=== PATIENT | female | born 1960 | race Caucasian/White ===

== ENCOUNTER 2024-07-10 05:46 | Observation (INO) ==
[2024-07-10] MEDS: KETOROLAC 30 MG/ML VIAL IVP STA (06:00)
[2024-07-10] MEDS: SODIUM CHLORIDE 0.9% 1,000 ML IV STA (06:00)
--- NOTE | 2024-07-10 06:07 | ED Physician Documentation ---
History of Present Illness Stated complaint Stated Complaint: AMS History obtained from History obtained from: Patient and EMS Additonal information Additional information: Patient comes to the emergency department via EMS for chief complaint of hypoxia, fever, and altered mental status that started apparently overnight. The patient was found outside her room at [facility] and only her underwear, laying on the floor. It was assumed she had fallen though nobody witnessed the fall. She is on Plavix. The staff checked her oxygen and found her to be 77%. The patient has end-stage COPD and is supposed to be on supplemental oxygen, but was not hooked up to it at the time she was found. Patient initially refuses to answer any questions though she eventually notes that she has had a cough but not worse than usual, and that she has some pain on the right side of her abdomen. No nausea or vomiting. No dysuria. She has some mild CVA tenderness bilaterally. The patient according to records has a longstanding history of smoking cigarettes and also has a history of methamphetamine use. Not clear when the last time was that she used that. She has a history of CHF in addition to her COPD, as well as chronic pain. She also has coronary artery disease and GERD. Medics state that they gave the patient Solu-Medrol as well as 2 DuoNebs after the patient had refused albuterol at [facility]. They also gave her magnesium. Meds/Allgy Home Medications Ambulatory Orders Medication Instructions Recorded Confirmed buspirone 15 mg tablet 15 mg PO TID 06/03/24 albuterol sulfate 90 mcg/actuation 2 puff inhalation Q ID PRN 06/21/24 07/08/24 aerosol inhaler shortness of breath or wheez ing #8.5 grams alprazolam 0.5 mg tablet 0.5 mg PO QDAY PRN anxiety # 30 tabs 06/21/24 07/08/24 cholecalciferol (vitamin D3) 50 50 mcg PO QDAY #90 cap s 06/21/24 07/08/24 mcg (2,000 unit) capsule clopidogrel 75 mg tablet 75 mg PO QDAY #90 tabs 06/2107/08/24 furosemide 20 mg tablet 20 mg PO QDAY #90 tabs 06/2107/08/24 gabapentin 300 mg capsule 300 mg PO TID #90 caps 06/2107/08/24 omeprazole 20 mg capsule,delayed 20 mg PO QDAY #90 cap s 06/21/24 07/08/24 release polyethylene glycol 3350 17 17 g PO QDAY PRN constipat ion 06/21/24 07/08/24 gram/dose oral powder quetiapine 200 mg tablet 200 mg PO QDAY PRN agitation , 06/21/24 07/08/24 paranoia, hallucinations #90 tabs quetiapine 400 mg tablet 400 mg PO QPM #90 tabs 06/2107/08/24 sennosides 8.6 mg capsule (senna) 8.6 mg PO BID 07/08/24 thiamine HCl (vitamin B1) 100 mg 100 mg PO QDAY #90 ca ps 06/21/24 07/08/24 capsule aspirin 81 mg tablet,delayed 81 mg PO QDAY #30 tabs 07/08/24 release (Brenda Low Dose Aspirin) mirtazapine 15 mg tablet 15 mg PO QDAY #30 tabs 06/2407/08/24 morphine 15 mg immediate release 7.5 mg (1/2 x 15 mg) PO TID #60 06/24/24 07/08/24 tablet tabs morphine 15 mg tablet,extended 15 mg PO TID 06/24/24 0 07/08/24 release (MS Contin) dextromethorphan-guaifenesin 5 10 ml PO TID #500 mL 07/08/24 mg-100 mg/5 mL oral liquid (Robitussin Cough-Chest Congestion DM) ipratropium 0.5 mg-albuterol 3 mg 3 ml inhalation TID #180 mL 07/08/24 07/08/24 (2.5 mg base)/3 mL nebulization soln Allergies Allergies Allergy/AdvReac Type Severity Reaction Status Date / Time No Known Drug Allergies Allergy Verified 07/10/24 06:45 [facility] Active Problems All Active Problems (Updated 07/10/24 @ 07:14 by Prema Epstein MD) Acute exacerbation of chronic obstructive pulmonary disease (Acute) Pneumonia (Acute) Hypoxia (Acute) Smokers' cough (Acute) Pulmonary embolism (Acute) Oxygen dependent (Chronic) Chronic respiratory failure with hypoxia (Chronic) Stented coronary artery (Chronic) GERD (gastroesophageal reflux disease) (Chronic) Vitamin D deficiency (Acute) Chronic dyspnea (Chronic) Generalized anxiety disorder (Chronic) Peripheral neuropathy (Chronic) Chronic pain syndrome (Chronic) Adjustment disorder with depressed mood (Acute) Heart failure with reduced ejection fraction (Chronic) Continuous opioid dependence (Chronic) Presence of IVC filter (Chronic) Left leg DVT (Chronic) COPD (chronic obstructive pulmonary disease) (Chronic) Leukocytosis (Acute) Anemia (Chronic) CAD (coronary artery disease) (Chronic) Bipolar 1 disorder (Chronic) Medical History Medical History (Updated 07/10/24 @ 07:14 by Prema Epstein MD) Methamphetamine abuse Constipation Coronary stent restenosis History of hyperkalemia History of hypoglycemia History of ETOH abuse CHF (congestive heart failure) DVT (deep venous thrombosis) Elevated liver enzymes Retroperitoneal bleed History of acute renal failure History of methicillin resistant Staphylococcus aureus infection History of pneumonia History of methamphetamine abuse History of bipolar disorder History of coronary artery disease History of DIC syndrome Surgical History Surgical History (Updated 07/08/24 @ 05:53 by MARITZA Ariza) History of heart artery stent History of thoracentesis Social History Social History (Updated 07/08/24 @ 05:55 by MARITZA Ariza) Smoking Status: Current every day smoker Number of Years Smoked: 45 How many cigarettes a day do you smoke? (20 cigarettes=1 Pk): 8 Second hand tobacco smoke exposure: Yes Do you dip or chew tobacco?: No Do you vape?: No Patient requests smoking cessation consult: No Initiate information on smoking cessation: No Living arrangement: Assisted living Living Condition: Other Support Person: Yes Relationship: Child Living Situation Details: [facility] April 2024 Physical Activity: None Level: Independent Do you feel safe in your home environment?: Yes Suffered physical, verbal, emotional, or financial abuse?: No Frequency: Occasional Number of Amount/day: 1 Substance Use: former substance user and opiods/painkillers Substance Use Details: Morphine and past meth/cannabis Are you following a diet prescribed by a doctor: No Are you following a special diet: No POLST Patient has POLST: Yes POLST Status: DNR Exam Constitutional normal general appearance and no apparent distress HENMT normocephalic, head/scalp atraumatic, external nose normal and oral mucous membranes normal Eyes EOMs intact bilaterally Neck/C-Spine visual inspection normal and supple Respiratory breath sounds equal bilaterally Moderate tachypnea, moderate rhonchi throughout bilateral lung yang. Good air movement to bases. No rales. Cardiovascular normal heart rate noted, regular rhythm noted and no edema Gastrointestinal abdomen soft to palpation and nondistended Mild tenderness to palpation right upper and lower quadrants, no rebound or guarding. Genitourinary no CVA tenderness Extremities normal to inspection Neurology Alert, grossly intact Psychiatry mental status grossly normal Skin skin color normal Results Vitals Vitals: Oxygen O2 Source Nasal cannula Labs Labs: Laboratory Tests 07/10/24 06:04 WBC 15.2 H RBC 4.31 Hgb 12.5 Hct 40.2 MCV 93.3 MCH 29.0 MCHC 31.1 L RDW 14.8 Plt Count 213 MPV 9.3 Neut # (Auto) 14.1 H Lymph # (Auto) 0.4 L [place] # (Auto) 0.5 Eos # (Auto) 0.0 Baso # (Auto) 0.0 Absolute Nucleated RBC 0.00 Nucleated RBC % 0.0 PD Medical Decision Making ED course Complexity details: reviewed old records, reviewed results, re-evaluated patient, considered differential, d/w patient and d/w family ED course: The patient had oxygen saturation on arrival of 95% on 5 L of oxygen per nasal cannula. Looking through her records, it was found that she has end-stage COPD and does require home O2 [id number], though she does take this off to go smoke outside. The patient was worked up with labs, chest x-ray, EKG, urinalysis, and respiratory PCR panel. Labs included blood cultures and lactic acid level. She was given a liter of normal saline and treated with Tylenol and Toradol. She was also sent for CTs of the head and neck with regard to her possible fall. White blood cell count was found to be around 15,000. BNP was 222. Chest x-ray showed a small infiltrate in the right lower lobe and patient was started on Rocephin and Zithromax for this. Urinalysis is pending at the time this dictation., As well as respiratory PCR panel. Lactic acid levels normal. Blood cultures pending. The patient CTs were done and Nonacute. I did attempt to get a hold of the hospitalist prior to the end of my shift at 7:00 this morning but was unable to reach them. I have signed the patient out to my oncoming colleague pending admission to the hospital for hypoxia, pneumonia, and COPD exacerbation. Discharge Plan Discharge Patient Disposition: 66 [facility] DC/Xfer Condition: Serious Clinical Impression: Hypoxia, Acute exacerbation of chronic obstructive pulmonary disease Pneumonia Qualifiers: Pneumonia type: due to unspecified organism Laterality: right Lung location: lower lobe of lung Qualified Code(s): J18.9 - Pneumonia, unspecified organism Prescriptions: No Action quetiapine 200 mg tablet 200 mg PO QDAY PRN (Reason: agitation, paranoia, hallucinations) Qty: 90 2RF quetiapine 400 mg tablet 400 mg PO QPM Qty: 90 0RF gabapentin 300 mg capsule 300 mg PO TID Qty: 90 5RF furosemide 20 mg tablet 20 mg PO QDAY Qty: 90 3RF clopidogrel 75 mg tablet 75 mg PO QDAY Qty: 90 3RF albuterol sulfate 90 mcg/actuation HFA aerosol inhaler 2 puff inhalation QID PRN (Reason: shortness of breath or wheezing) Qty: 8.5 5RF Rx Instructions: Resident may keep and self-administer alprazolam 0.5 mg tablet 0.5 mg PO QDAY PRN (Reason: anxiety) Qty: 30 5RF cholecalciferol (vitamin D3) 50 mcg (2,000 unit) capsule 50 mcg PO QDAY Qty: 90 3RF thiamine HCl (vitamin B1) 100 mg capsule 100 mg PO QDAY Qty: 90 3RF omeprazole 20 mg capsule,delayed release(DR/EC) 20 mg PO QDAY Qty: 90 3RF senna 8.6 mg capsule 8.6 mg PO BID Rx Instructions: Hold for loose stool polyethylene glycol 3350 17 gram/dose powder 17 g PO QDAY PRN (Reason: constipation) morphine 15 mg tablet 7.5 mg PO TID Qty: 60 0RF Rx Instructions: Give at 8AM, 2PM, 8 PM. May have during night if skips during day. Max 4 tabs daily morphine [MS Contin] 15 mg tablet extended release 15 mg PO TID Rx Instructions: Give at 6AM, 12PM, 6PM mirtazapine 15 mg tablet 15 mg PO QDAY Qty: 30 11RF aspirin [Brenda Low Dose Aspirin] 81 mg tablet,delayed release (DR/EC) 81 mg PO QDAY Qty: 30 11RF buspirone 15 mg tablet 15 mg PO TID dextromethorphan-guaifenesin [Robitussin Cough-Chest Librado DM] 5-100 mg/5 mL liquid 10 ml PO TID Qty: 500 5RF Rx Instructions: Use for a week TID routinely, take a week off, then restart cycle ipratropium-albuterol 0.5 mg-3 mg(2.5 mg base)/3 mL solution for nebulization 3 ml inhalation TID Qty: 180 12RF Print Language: Georgian
[2024-07-10 06:12] LABS: BASOPHILS % (AUTO) 0.2 %; EOSINOPHILS % (AUTO) 0.1 %; HCT - HEMATOCRIT 40.2 % (37.0-47.0); HGB - HEMOGLOBIN 12.5 g/dL (12.0-16.0); LYMPHOCYTES # (AUTO) 0.4 10^3/uL (1.5-3.5); LYMPHOCYTES % (AUTO) 2.8 %; MEAN CORPUSCULAR HGB CONC 31.1 g/dL (32.0-36.0); MEAN CORPUSCULAR VOLUME 93.3 fL (81.0-99.0); MEAN PLATELET VOLUME 9.3 fL (7.9-10.8); MONOCYTES # (AUTO) 0.5 10^3/uL (0.0-1.0); MONOCYTES % (AUTO) 3.5 %; NEUTROPHILS # (AUTO) 14.1 10^3/uL (1.5-6.6); NEUTROPHILS % (AUTO) 93.1 %; PLT - PLATELET COUNT 213 10^3/uL (130-450); RED BLOOD COUNT 4.31 10^6/uL (4.20-5.40); RED CELL DISTRIBUTION WIDTH 14.8 % (12.0-15.0); WHITE BLOOD COUNT 15.2 x10^3/uL (4.8-10.8)
[2024-07-10 06:28] LABS: ALBUMIN/GLOBULIN RATIO 1.3 (1.0-2.2); BILIRUBIN,TOTAL 0.4 mg/dL (0.2-1.0); CALCIUM 9.5 mg/dL (8.5-10.3); CREATININE 0.8 mg/dL (0.6-1.3); TOTAL PROTEIN 7.1 g/dL (6.4-8.9)
[2024-07-10] MEDS: ACETAMINOPHEN 650 MG SUPP PR STA (06:30)
[2024-07-10 06:44] LABS: BILIRUBIN,URINE NEGATIVE (NEGATIVE); GLUCOSE, URINE (UA) NEGATIVE (NEGATIVE); KETONES,URINE (UA) NEGATIVE (NEGATIVE); LEUKOCYTE ESTERASE, URINE NEGATIVE (NEGATIVE); NITRITE,URINE NEGATIVE (NEGATIVE); OCCULT BLOOD,URINE NEGATIVE (NEGATIVE); PH,URINE 7.5 PH (5.0-7.5); PROTEIN,URINE NEGATIVE (NEGATIVE); UROBILINOGEN,URINE 0.2 (NORMAL) E.U./dL (NORMAL)
[2024-07-10 06:48] LABS: CLARITY,URINE CLEAR (CLEAR)
[2024-07-10] MEDS ORDERED: cefTRIAXone 2 GM VIAL ONE (06:54)
--- NOTE | 2024-07-10 07:00 | CT Report ---
PROCEDURE: CT Head WO INDICATIONS: fall head inj anticoag TECHNIQUE: CT of the head was performed, without intravenous contrast. Reformats: Coronal and sagittal. For radiation dose reduction, the following was used: automated exposure control, adjustment of mA and/or kV according to patient size. COMPARISON: None. FINDINGS: Image quality: Motion degraded CSF spaces: Basal cisterns are patent. Lateral ventricles are symmetric. Volume: Vascular calcifications. Periventricular white matter disease is commonly seen with chronic microangiopathy. Volume loss is present. These findings are mild to moderate . Brain: No intracranial hemorrhage. Rivera-white differentiation is grossly maintained. Craniofacial structures: Mild paranasal sinus mucosal thickening. IMPRESSION: No acute intracranial abnormality. Motion degraded CT. Reviewed by: Da Hughes MD on 07/10/2024 6:59 AM PDT Approved by: Da Hughes MD on 07/10/2024 6:59 AM PDT Station ID: [id number]
[2024-07-10] MEDS: cefTRIAXone 2 GM in SODIUM CHLORIDE 0.9% MINIBAG 100 ML IV STA (07:01)
--- NOTE | 2024-07-10 07:02 | CT Report ---
PROCEDURE: CT Cervical Spine WO INDICATIONS: fall/ head inj TECHNIQUE: Noncontrast 3 mm thick sections acquired from the skull base to the T4 level. Sagittal and coronal reformats were then constructed. For radiation dose reduction, the following was used: automated exposure control, adjustment of mA and/or kV according to patient size. COMPARISON: None. FINDINGS: Image quality: Motion degraded CT Bones: Mild to moderate spondylotic changes. There is gas, likely degenerative at the inferior endplate of C5. No acute vertebral body height loss or traumatic subluxation is seen. Soft tissues: Prevertebral soft tissues within normal limits. Emphysema seen in the lung apices. IMPRESSION: Mild to moderate spondylosis of the cervical spine. No acute fracture or traumatic subluxation. If there is high concern for further derangement, consider MRI evaluation. Partially seen emphysema at the lung apices. Reviewed by: Da Hughes MD on 07/10/2024 7:01 AM PDT Approved by: Da Hughes MD on 07/10/2024 7:01 AM PDT Station ID: [id number]
--- NOTE | 2024-07-10 07:18 | XRAY Report ---
PROCEDURE: XR Chest 1V INDICATIONS: fever, hypoxia TECHNIQUE: One view of the chest was acquired. COMPARISON: 03/08/2024 FINDINGS AND IMPRESSION: Small right pleural effusion and subjacent opacity. Diffuse mild to moderate interstitial prominence. Findings likely represent edema versus infection. Consider future imaging surveillance to assess for resolution. Heart size is at the upper limit of normal. Degenerative osseous changes. Reviewed by: Da Hughes MD on 07/10/2024 7:17 AM PDT Approved by: Da Hughes MD on 07/10/2024 7:17 AM PDT Station ID: [id number]
[2024-07-10] MEDS: AZITHROMYCIN INJ 500 MG in SODIUM CHLORIDE 0.9% 250 ML IV STA (07:51)
[2024-07-10 07:52] LABS: B. PARAPERTUSSIS- RESP PCR PAN NOT DETECTED; B. PERTUSSIS- RESP PCR PANEL NOT DETECTED; C. PNEUMONIAE- RESP PCR PANEL NOT DETECTED; CORONAVIRUS 229E-RESP PCR NOT DETECTED; CORONAVIRUS HKU1-RESP PCR NOT DETECTED; CORONAVIRUS NL63-RESP PCR NOT DETECTED; CORONAVIRUS OC43-RESP PCR NOT DETECTED; HUMAN METAPNEUMOVIRUS NOT DETECTED; INFLUENZA A- RESP PCR PANEL NOT DETECTED; INFLUENZA B - RESP PCR PANEL NOT DETECTED; M. PNEUMONIAE- RESP PCR PANEL NOT DETECTED; PARAINFLUENZA VIRUS 1 NOT DETECTED; PARAINFLUENZA VIRUS 2 NOT DETECTED; PARAINFLUENZA VIRUS 4 NOT DETECTED; RHINOVIRUS/ENTEROVIRUS NOT DETECTED; RSV- RESP PCR PANEL NOT DETECTED; SARS-CoV-2 -RESP PCR PANEL NOT DETECTED
[2024-07-10] MEDS: IPRATROPIUM/ALBUTEROL 3 ML NEB INH STA (08:21)
[2024-07-10] MEDS: HYDROmorphone 1 MG/ML CARPUJECT IVP STA (08:31)
[2024-07-10] MEDS: LORazepam 2 MG/ML VIAL IVP STA (08:32)
[2024-07-10] MEDS: DEXAMETHASONE 10 MG/ML VIAL IVP STA (08:32)
[2024-07-10] MEDS ORDERED: SODIUM CHLORIDE FLUSH 0.9% 10 ML SYRINGE IVP PRN (09:23)
[2024-07-10] MEDS ORDERED: ONDANSETRON ODT 4 MG TABLET TL PRN (09:23)
[2024-07-10] MEDS ORDERED: ACETAMINOPHEN 325 MG TABLET PO PRN (09:23)
[2024-07-10] MEDS ORDERED: CHOLECALCIFEROL PO SCH (09:57)
--- NOTE | 2024-07-10 12:23 | PHARMACY PROGRESS NOTE ---
Best Possible Medication History Admit Date and Time: 07/10/24 [id number] Home Medications Medication Instructions Recorded Confirmed Type buspirone 15 mg tablet 15 mg PO TID 06/03/24 History gabapentin 300 mg capsule 300 mg PO TID #90 caps 06/2107/10/24 Rx polyethylene glycol 3350 17 17 g PO DAILY PRN constipa tion 06/21/24 07/10/24 History gram/dose oral powder quetiapine 400 mg tablet 400 mg PO QPM #90 tabs 06/2107/10/24 Rx sennosides 8.6 mg capsule (senna) 8.6 mg PO BID PRN co nstipation 06/21/24 07/10/24 History morphine 15 mg tablet,extended 15 mg PO TID 06/24/24 0 07/10/24 History release (MS Contin) ipratropium 0.5 mg-albuterol 3 mg 3 ml inhalation TID #180 mL 07/08/24 07/10/24 Rx (2.5 mg base)/3 mL nebulization soln albuterol sulfate 2.5 mg/3 mL 2.[address] N 07/10/24 07/10/24 History (0.083 %) solution for nebulization shortness of breat h or wheezing albuterol sulfate 90 mcg/actuation 2 puff inhalation T ID PRN 07/10/24 07/10/24 History aerosol inhaler shortness of breath or wheez ing alprazolam 0.5 mg tablet 0.5 mg PO DAILY PRN anxiety 07/10/24 07/10/24 History aspirin 81 mg tablet,delayed 81 mg PO DAILY 07/10/24 0 07/10/24 History release (Brenda Low Dose Aspirin) cholecalciferol (vitamin D3) 50 50 mcg PO DAILY History mcg (2,000 unit) capsule clopidogrel 75 mg tablet 75 mg PO DAILY 07/10/2406/26 History cyanocobalamin (vitamin B-12) 1,000 mcg PO DAILY 07/1007/10/24 History 1,000 mcg tablet furosemide 20 mg tablet 20 mg PO DAILY 07/10/2406/26 History guaifenesin 1,200 mg tablet, 1,200 mg PO BID PRN conge stion 07/10/24 07/10/24 History extended release 12 hr (Mucinex) mirtazapine 15 mg tablet 15 mg PO HS 07/10/24 5 History morphine 15 mg immediate release 7.5 mg PO TID PRN brandon akthrough pain 07/10/24 07/10/24 History tablet omeprazole 20 mg capsule,delayed 20 mg PO DAILY 07/10/24 History release quetiapine 200 mg tablet 200 mg PO BID PRN agitation, 07/10/24 07/10/24 History paranoia, hallucinations thiamine HCl (vitamin B1) 100 mg 100 mg PO DAILY 07/1007/10/24 History capsule tizanidine 4 mg tablet 4 mg PO TID PRN muscle spast icity 07/10/24 07/10/24 History Processed by: Pharmacy Medications reviewed in ED?: No Medication History completed: Yes Patient Interview: Pt unable to participate Secondary Source(s): Insurance records and Facility MAR as ONLY source (Medication list from [facility]) [facility] Statement: As the person ultimately responsible for medication therapy, providers are able to order a medication from an existing home medication list in [facility] via the "Reconcile Routine" prior to Confirmation of that medication by account support specialist. Such practice is discouraged except when the physician, in their clinical judgment, deems that a medical need exists for a medication without regard to previous use.
[2024-07-10] MEDS ORDERED: polyethylene glycoL 3350 17 GM PACKET PO PRN (12:32)
[2024-07-10] MEDS: THIAMINE 100 MG TABLET PO SCH (13:39)
[2024-07-10] MEDS: ASPIRIN EC 81 MG TABLET PO SCH (13:39)
[2024-07-10] MEDS: busPIRone 5 MG TABLET PO SCH (13:39)
[2024-07-10] MEDS: GABAPENTIN 300 MG CAPSULE PO SCH (13:39)
[2024-07-10] MEDS: FUROSEMIDE 20 MG TABLET PO SCH (13:40)
[2024-07-10] MEDS: CLOPIDOGREL 75 MG TABLET PO SCH (13:40)
[2024-07-10] MEDS ORDERED: tiZANidine 4 MG TABLET PO PRN (14:13)
[2024-07-10] MEDS ORDERED: guaiFENesin 600 MG TABLET PO PRN (14:13)
[2024-07-10] MEDS: MORPHINE IR 15 MG TABLET PO PRN (14:27)
[2024-07-10] MEDS: ALPRAZolam 0.25 MG TABLET PO PRN (15:59)
[2024-07-10] MEDS: GUAIFENESIN PO SCH (16:16)
[2024-07-10] MEDS: DEXTROMETHORPHAN PO SCH (16:16)
[2024-07-10] MEDS: [UNRECOGNIZED DRUG - OTHER] PO SCH (16:16)
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
[2024-07-10] MEDS: SODIUM CHLORIDE FLUSH 0.9% 10 ML SYRINGE IVP SCH (20:20)
[2024-07-10] MEDS: QUEtiapine 100 MG TABLET PO SCH (20:21)
[2024-07-10] MEDS: MIRTAZAPINE 15 MG TABLET PO SCH (20:21)
[2024-07-10] MEDS ORDERED: SENNA 8.6 MG TABLET PO PRN (21:00)
[2024-07-11] MEDS: ethyl alcohoL 62% SWAB AMPULE NAS SCH (00:52)
[2024-07-11] MEDS: KETOROLAC 15 MG/ML VIAL IVP PRN (00:58)
[2024-07-11] MEDS: ALPRAZolam 0.25 MG TABLET PO PRN (00:58)
[2024-07-11 05:48] LABS: BASOPHILS % (AUTO) 0.2 %; HCT - HEMATOCRIT 40.1 % (37.0-47.0); HGB - HEMOGLOBIN 12.3 g/dL (12.0-16.0); LYMPHOCYTES # (AUTO) 0.7 10^3/uL (1.5-3.5); MEAN CORPUSCULAR HGB CONC 30.7 g/dL (32.0-36.0); MEAN CORPUSCULAR VOLUME 94.6 fL (81.0-99.0); MEAN PLATELET VOLUME 10.2 fL (7.9-10.8); MONOCYTES # (AUTO) 0.8 10^3/uL (0.0-1.0); MONOCYTES % (AUTO) 4.2 %; NEUTROPHILS # (AUTO) 16.7 10^3/uL (1.5-6.6); NEUTROPHILS % (AUTO) 91.1 %; PLT - PLATELET COUNT 202 10^3/uL (130-450); RED BLOOD COUNT 4.24 10^6/uL (4.20-5.40); RED CELL DISTRIBUTION WIDTH 14.9 % (12.0-15.0); WHITE BLOOD COUNT 18.3 x10^3/uL (4.8-10.8)
[2024-07-11 06:04] LABS: CALCIUM 9.4 mg/dL (8.5-10.3); CREATININE 0.6 mg/dL (0.6-1.3); POTASSIUM 4.7 mmol/L (3.5-4.5)
[2024-07-11] MEDS: PANTOPRAZOLE 40 MG TABLET PO SCH (06:32)
[2024-07-11] MEDS: QUEtiapine 100 MG TABLET PO PRN (06:43)
[2024-07-11] MEDS ORDERED: ALBUTEROL NEB 2.5 MG/3 ML INH PRN (07:52)
[2024-07-11] MEDS: IPRATROPIUM/ALBUTEROL 3 ML NEB INH SCH (08:00)
[2024-07-11] MEDS: CEFPODOXIME PROXETIL 100 MG TABLET PO SCH (08:33)
[2024-07-11] MEDS: AZITHROMYCIN 250 MG TABLET PO SCH (08:34)
[2024-07-11] MEDS: CYANOCOBALAMIN 500 MCG TABLET PO SCH (08:34)
[2024-07-11 12:13] LABS: ABG PH 7.44 (7.35-7.45)
[2024-07-11 12:14] LABS: ABG BASE EXCESS 14.1 mmol/L (-2.0-3.0); ABG HCO3 38.4 mmol/L (22.0-26.0); ABG OXYGEN SATURATION 99 % (95-98); ABG PCO2 56 mmHg (34-45); ABG PO2 97 mmHg (83-108); ALLEN TEST POSITIVE
[2024-07-11 12:17] LABS: ABG TCO2 40.1 mmol/L (21.0-29.0)
[2024-07-11 13:07] VITALS: BP 101/65; TEMP 98.1; O2SAT 93
--- NOTE | 2024-07-11 13:59 | Discharge Summary ---
Discharge Summary Admit Date: 07/10/24 Discharge Date: 07/11/24 Discharging Provider: Dr Toby Bustos MD DIAGNOSES Admission Diagnoses: CAP COPD Chronic respiratory failure with hypoxia CAD BESSY Chronic pain syndrome Discharge Diagnoses with Status of Each Condition: Community-acquired pneumoniaimproved COPD - Stable Chronic respiratory failure with hypoxia - Stable CAD - Stable BESSY - Stable Chronic pain syndrome - Stable HPI History of Present Illness: Patient is a 63-year-old female with a PMH of CAD, COPD, chronic pain on opiates, generalized anxiety, who resides at an assisted living facility and was brought to the emergency room after she was found to have low oxygen levels. Per reports she was found lying on the floor only in her underwear and when staff checked her oxygen level it was 77% on room air. She is prescribed continuous oxygen supplementation as she has a history of end-stage COPD but per the daughter, she often times does not wear it. She states that when she was sitting on the floor she sat upright and thinking a pillow was behind her head she abruptly extended her back to straighten up and hit her head on the wall as the pillow had fallen. As such she is complaining of headache at the time of admission. In the ED the patient was well stabilized on 2 L nasal cannula and remainder of her vital signs were within normal limits. Head CT, cervical spine CT showed no acute abnormalities. Chest x-ray was equivocal for possible pneumonia.She does have a WBC of 15.2 however she was given Solu-Medrol prior to the ED arrival. Given that she was demonstrating some labored breathing, and mildly hypoxic, observation admission is requested in the ED. HOSPITAL COURSE Hospital Course: Patient was admitted to [facility]. Her oxygen levels returned to her baseline 2 L oxygen requirement shortly after admission. Overall she had an uneventful course during her 1 night stay in the hospital and she did well. She was maintained on p.o. antibiotics and had no fevers or other suggestion of worsening infection. Given that she was at her baseline oxygen requirements, she was deemed to be stable for discharge. ALLERGIES Allergies Allergy/AdvReac Type Severity Reaction Status Date / Time No Known Drug Allergies Allergy Verified 07/10/24 06:45 MEDICATIONS Ambulatory Orders Medication Instructions Recorded Confirmed buspirone 15 mg tablet 15 mg PO TID 06/03/24 gabapentin 300 mg capsule 300 mg PO TID #90 caps 06/2107/10/24 polyethylene glycol 3350 17 17 g PO DAILY PRN constipa tion 06/21/24 07/10/24 gram/dose oral powder quetiapine 400 mg tablet 400 mg PO QPM #90 tabs 06/2107/10/24 sennosides 8.6 mg capsule (senna) 8.6 mg PO BID PRN co nstipation 06/21/24 07/10/24 morphine 15 mg tablet,extended 15 mg PO TID 06/24/24 0 07/10/24 release (MS Contin) ipratropium 0.5 mg-albuterol 3 mg 3 ml inhalation TID #180 mL 07/08/24 07/10/24 (2.5 mg base)/3 mL nebulization soln albuterol sulfate 2.5 mg/3 mL 2.5 mg inhalation Q4H LA N 07/10/24 07/10/24 (0.083 %) solution for nebulization shortness of breat h or wheezing albuterol sulfate 90 mcg/actuation 2 puff inhalation T ID PRN 07/10/24 07/10/24 aerosol inhaler shortness of breath or wheez ing alprazolam 0.5 mg tablet 0.5 mg PO DAILY PRN anxiety 07/10/24 07/10/24 aspirin 81 mg tablet,delayed 81 mg PO DAILY 07/10/24 0 07/10/24 release (Brenda Low Dose Aspirin) clopidogrel 75 mg tablet 75 mg PO DAILY 07/10/2406/26 cyanocobalamin (vitamin B-12) 1,000 mcg PO DAILY 07/1007/10/24 1,000 mcg tablet furosemide 20 mg tablet 20 mg PO DAILY 07/10/2406/26 guaifenesin 1,200 mg tablet, 1,200 mg PO BID PRN conge stion 07/10/24 07/10/24 extended release 12 hr (Mucinex) mirtazapine 15 mg tablet 15 mg PO HS 07/10/24 5 morphine 15 mg immediate release 7.5 mg PO TID PRN brandon akthrough pain 07/10/24 07/10/24 tablet omeprazole 20 mg capsule,delayed 20 mg PO DAILY 07/10/24 release quetiapine 200 mg tablet 200 mg PO BID PRN agitation, 07/10/24 07/10/24 paranoia, hallucinations thiamine HCl (vitamin B1) 100 mg 100 mg PO DAILY 07/1007/10/24 capsule tizanidine 4 mg tablet 4 mg PO TID PRN muscle spast icity 07/10/24 07/10/24 azithromycin 250 mg tablet 500 mg (2 x 250 mg) PO PATRICE Y 3 07/11/24 days #3 tabs cefpodoxime 100 mg tablet 100 mg PO BID 3 days #6 tabs 07/11/24 PHYSICAL EXAM AT DISCHARGE Vital Signs: Vital Signs x48h Temp Pulse Pulse Resp BP Pulse Ox O2 Flow Rate 07/11/24 13:00 36.7 C 88 20 101/65 93 2 07/11/24 11:31 80 16 2 07/11/24 08:05 2 07/11/24 08:01 80 16 2 07/11/24 07:48 80 20 94 2 07/11/24 07:28 36.6 C 79 16 115/68 95 2 General Appearance: positive No acute distress and Alert Respiratory: positive No respiratory distress and Breath sounds nml; negative Wheezes Cardiovascular: positive Regular rate & rhythm, No murmur and No gallop Abdomen: positive Non-tender, No organomegaly, Nml bowel sounds and No distention Skin: positive Color nml Extremities: positive Nml appearance Neurologic/Psychiatric: positive Oriented x3, CN's nml (2-12) and Motor nml LABS 07/11/24 05:32 07/11/24 05:32 DIAGNOSTIC IMAGING Diagnostic Imaging Results: Final report reviewed SEPSIS Current Stage of Sepsis: Ruled out FOLLOW UP Follow Up: Follw up with PCP and palliative care TIME SPENT Time Spent in Discharge (Minutes): 42 Discharge Plan Discharge Patient Disposition: Home, Self Care Condition: Serious Medically Cleared Date:: 07/11/24 Prescriptions: New azithromycin 250 mg Tablet 500 mg PO DAILY 3 Days Qty: 3 0RF cefpodoxime 100 mg Tablet 100 mg PO BID 3 Days Qty: 6 0RF Continued cyanocobalamin (vitamin B-12) 1,000 mcg tablet 1,000 mcg PO DAILY guaifenesin [Mucinex] 1,200 mg tablet extended release 12hr 1,200 mg PO BID PRN (Reason: congestion) albuterol sulfate 2.5 mg /3 mL (0.083 %) solution for nebulization 2.5 mg inhalation Q4H PRN (Reason: shortness of breath or wheezing) tizanidine 4 mg tablet 4 mg PO TID PRN (Reason: muscle spasticity) quetiapine 200 mg tablet 200 mg PO BID PRN (Reason: agitation, paranoia, hallucinations) clopidogrel 75 mg tablet 75 mg PO DAILY aspirin [Brenda Low Dose Aspirin] 81 mg tablet,delayed release (DR/EC) 81 mg PO DAILY alprazolam 0.5 mg tablet 0.5 mg PO DAILY PRN (Reason: anxiety) omeprazole 20 mg capsule,delayed release(DR/EC) 20 mg PO DAILY furosemide 20 mg tablet 20 mg PO DAILY mirtazapine 15 mg tablet 15 mg PO HS albuterol sulfate 90 mcg/actuation HFA aerosol inhaler 2 puff inhalation TID PRN (Reason: shortness of breath or wheezing) Rx Instructions: Resident may keep and self-administer morphine 15 mg tablet 7.5 mg PO TID PRN (Reason: breakthrough pain) Rx Instructions: Give at 8AM, 2PM, 8 PM. May have during night if skips during day. Max 4 tabs daily thiamine HCl (vitamin B1) 100 mg capsule 100 mg PO DAILY quetiapine 400 mg tablet 400 mg PO QPM Qty: 90 0RF gabapentin 300 mg capsule 300 mg PO TID Qty: 90 5RF Patient Comments: 0800, 1400, 2000 senna 8.6 mg capsule 8.6 mg PO BID PRN (Reason: constipation) Rx Instructions: Hold for loose stool polyethylene glycol 3350 17 gram/dose powder 17 g PO DAILY PRN (Reason: constipation) morphine [MS Contin] 15 mg tablet extended release 15 mg PO TID Rx Instructions: Give at 6AM, 1230PM, 6PM buspirone 15 mg tablet 15 mg PO TID ipratropium-albuterol 0.5 mg-3 mg(2.5 mg base)/3 mL solution for nebulization 3 ml inhalation TID Qty: 180 12RF Health Concerns: Prema you were admitted to the hospital because you were brought to the ER and found to have low oxygen saturation levels. It is my understanding that you were not wearing your oxygen when this occurred, and because of the significance of your COPD, unfortunately you will need to wear oxygen continuously at all times because of you do not, your oxygen levels may drop to an unsafe level which can lead to you passing out, or worse. Please continue to wear your oxygen nasal cannula as prescribed. In addition, as we evaluated you in the emergency room a chest x-ray suggested the possibility of pneumonia. To play it safe, I am going to continue the treatments of your antibiotics that we gave you here in the hospital. You will need 3 more days of tablets. You have already had today's dose, so you can start taking the rest of them tomorrow, on Sunday. I will send a prescription to your pharmacy. Also, I know that you have been followed by palliative care. Typically patients on a palliative care plan have a goal of care that focuses primarily on quality of life and tries to minimize hospital visits when possible. With this in mind, I have discussed this with your daughter, to communicate to the facility where you live, that as long as you are not feeling well, and otherwise doing well, moderately low oxygen levels should not necessarily require a visit to the emergency room. Because you have COPD, it would be normal for your oxygen levels to be lower than normal, and occasionally it may even dip into the low 80s. If you are not having fevers, and generally feeling well, you can evaluate whether you would like to go to the emergency room but it may not always be necessary. This should be discussed further with your palliative care caregivers, so that your goals of care are clearly defined so that you can focus on enjoying your quality of life rather than spending more time in hospitals. On the other hand, should your goals of care change, then absolutely changes to your health should be evaluated and when necessary visits to the hospital would be appropriate. Care Plan Goals: Pallaitive Care Plan of Treatment: * Complete antiboitics * Follow up with PCP and Palliative Care * Cont home oxygen Print Language: Lao Patient Instructions: Care Palliative
--- NOTE | 2024-07-23 19:49 | ED Physician Documentation ---
ED Addendum Addendum Addendum: the patient was boarding for admission at time of shift change. Dr. irby attempted contact with hospitalist at shift change and they did call back soon after while she was still here. Planned admission for patient when bed available during the day. Pt in the ED awaiting bed opening and got continued resp care with nebs and fluids. Antibiotics had already been given. No complications and pt to the floor. Discharge Plan Discharge Patient Disposition: ED Place in Observation Condition: Serious Clinical Impression: Hypoxia, Pneumonia, Acute exacerbation of chronic obstructive pulmonary disease, Oxygen dependent Interventions: ED Admission Assessment Last Done: 07/10/24 10:19
== END 2024-07-11 15:03 | disposition home or self-care (01) ==
LOC: MS2 05:46 → ED 05:46 → MS2 10:20
PROVIDERS: ADMIT Family Medicine Sports Medicine; ATTEND Family Medicine Sports Medicine
DX: F17.210 Nicotine dependence, cigarettes, uncomplicated; I50.22 Chronic systolic (congestive) heart failure; J18.9 Pneumonia, unspecified organism; G89.4 Chronic pain syndrome; W19.XXXA Unspecified fall, initial encounter; I25.10 Atherosclerotic heart disease of native coronary artery without angina pectoris; K21.9 Gastro-esophageal reflux disease without esophagitis; Z20.822 Contact with and (suspected) exposure to COVID-19; Z66 Do not resuscitate; J44.1 Chronic obstructive pulmonary disease with (acute) exacerbation; Z95.5 Presence of coronary angioplasty implant and graft; J96.11 Chronic respiratory failure with hypoxia; J44.0 Chronic obstructive pulmonary disease with (acute) lower respiratory infection; F41.1 Generalized anxiety disorder; Z20.818 Contact with and (suspected) exposure to other bacterial communicable diseases; Z79.899 Other long term (current) drug therapy; I49.3 Ventricular premature depolarization; Z79.02 Long term (current) use of antithrombotics/antiplatelets; G62.9 Polyneuropathy, unspecified; Z99.81 Dependence on supplemental oxygen; Z79.891 Long term (current) use of opiate analgesic; S09.90XA Unspecified injury of head, initial encounter; I45.10 Unspecified right bundle-branch block; Z20.828 Contact with and (suspected) exposure to other viral communicable diseases

== ENCOUNTER 2025-02-22 12:54 | Inpatient (IN) ==
--- NOTE | 2025-02-22 13:23 | ED Physician Documentation ---
History of Present Illness Stated complaint Stated Complaint: CONFUSION Chief complaint Chief Complaint: Resp History obtained from History obtained from: Patient History of Present Illness Timing: Prior to arrival Additonal information Additional information: Patient 64-year-old female with past medical history of COPD on 3 L nasal cannula, history of coronary artery disease with history of STEMI history of alcohol use methamphetamine use and history of CHF presents to the emergency department with increased weakness and fatigue. Patient was seen here recently on the at that time was diagnosed with COPD exacerbation and discharged on antibiotics and steroids. Since then patient has been having some diarrhea she has finished steroids and antibiotics. But continues to have diarrhea chills and weakness. Daughter feels she is confused but patient is ANO x 2 here in the ED. She notes she has fallen but no head injury or loss of consciousness. P deacon has been weaker on getting around she currently lives at assisted living facility and was brought in by daughter for increased shortness of breath weakness and diarrhea. Meds/Allgy Home Medications Ambulatory Orders Medication Instructions Recorded Confirmed albuterol sulfate 90 mcg/actuation 2 puff inhalation T ID PRN 07/10/24 02/22/25 aerosol inhaler shortness of breath or wheez ing furosemide 20 mg tablet 20 mg PO DAILY 07/10/2401/27 thiamine HCl (vitamin B1) 100 mg 100 mg PO DAILY 07/1002/22/25 capsule mirtazapine 30 mg tablet 45 mg (1.5 x 30 mg) PO HS #3 0 tabs 08/26/24 02/22/25 quetiapine 200 mg tablet 200 mg PO QDAY #30 tabs 07/0 03/2202/22/25 quetiapine 200 mg tablet 200 mg PO QDAY PRN agitation , 08/26/24 02/22/25 paranoia, hallucinations aspirin 81 mg tablet,delayed 81 mg PO DAILY #30 tabs 0 08/28/24 02/22/25 release (Brenda Low Dose Aspirin) ipratropium 0.5 mg-albuterol 3 mg 3 ml inhalation QID #180 mL 09/30/24 02/22/25 (2.5 mg base)/3 mL nebulization soln pantoprazole 20 mg tablet,delayed See Rx Instructions .Route 10/21/24 02/22/25 release .COMPLEX #30 tabs cholecalciferol (vitamin D3) 50 50 mcg PO QDAY #30 cap s 12/09/24 02/22/25 mcg (2,000 unit) capsule cyanocobalamin (vitamin B-12) 1,000 mcg PO DAILY #30 t abs 12/09/24 02/22/25 1,000 mcg tablet magnesium gluconate 12.5 mg 12.5 mg PO BID #90 tabs 02/22/25 magnesium (250 mg) tablet polyethylene glycol 3350 17 17 g PO QDAY PRN constipat ion 12/09/24 02/22/25 gram/dose oral powder fluticasone fur. 100 mcg-umeclid 1 inh inhalation Q24H #60 ea 12/22/24 02/22/25 62.5 mcg-vilant 25 mcg inhalat.powder (Trelegy Ellipta) morphine concentrate 100 mg/5 mL 15 mg (0.75 mL) PO Q4 H #240 mL 01/06/25 02/22/25 (20 mg/mL) oral solution sennosides 8.6 mg tablet (senna) 8.6 mg PO BID #60 tab s 01/06/25 02/22/25 gabapentin 300 mg capsule See Rx Instructions .Route 1 03/11/24 02/22/25 .COMPLEX #90 caps alprazolam 0.5 mg tablet 0.5 mg PO BID PRN anxiety #6 0 tabs 02/05/25 02/22/25 clopidogrel 75 mg tablet 75 mg PO DAILY #30 tabs 01/2602/22/25 sennosides 8.6 mg capsule (senna) 8.6 mg PO QDAY PRN c onstipation 02/05/25 02/22/25 buspirone 10 mg tablet 10 mg PO BID #90 tabs 02/22/25 guaifenesin 100 mg/5 mL oral liquid 200 mg (10 mL) PO Q4H 7 days #420 02/16/25 02/22/25 mL prednisone 5 mg tablet 10 mg (2 x 5 mg) PO QDAY #30 tabs 02/16/25 02/22/25 quetiapine 400 mg tablet 400 mg PO QPM #90 tabs 02/1702/22/25 Allergies Allergies Allergy/AdvReac Type Severity Reaction Status Date / Time No Known Drug Allergies Allergy Verified 02/22/25:03 [facility] Active Problems All Active Problems (Updated 02/22/25 @ 14:40 by Dinah Perez PA-C) Right lower lobe pneumonia (Acute) Fatigue (Acute) Encephalopathy (Acute) Pneumonia (Acute) Acute exacerbation of chronic obstructive pulmonary disease (Acute) Hypotension (Acute) Carpal tunnel syndrome on both sides (Acute) Drug induced constipation (Acute) Hepatomegaly (Chronic) Amphetamine substance use disorder, moderate, in sustained remission, dependence (Acute) Tobacco use disorder, moderate, dependence (Acute) Localized swelling of both lower legs (Acute) Counseling regarding advanced directives and goals of care (Acute) Chronic respiratory failure with hypoxia, on home oxygen therapy (Acute) Chronic congestion of paranasal sinus (Chronic) Hypoxia (Acute) Smokers' cough (Chronic) Pulmonary embolism (Acute) Stented coronary artery (Chronic) GERD (gastroesophageal reflux disease) (Chronic) Chronic dyspnea (Chronic) Generalized anxiety disorder (Chronic) Peripheral neuropathy (Chronic) Chronic pain syndrome (Chronic) Adjustment disorder with depressed mood (Chronic) Heart failure with reduced ejection fraction (Chronic) Continuous opioid dependence (Chronic) Presence of IVC filter (Chronic) Left leg DVT (Chronic) COPD (chronic obstructive pulmonary disease) (Chronic) Anemia (Chronic) CAD (coronary artery disease) (Chronic) Bipolar 1 disorder (Chronic) Medical History Medical History (Updated 02/22/25 @ 14:40 by Dinah Perez PA-C) History of ST elevation myocardial infarction (STEMI) 08/2023 & 09/2023 History of rhabdomyolysis Acute hyperkalemia Leukocytosis Methamphetamine abuse in remission Vitamin D deficiency History of DVT (deep vein thrombosis) History of CHF (congestive heart failure) History of chronic respiratory failure Oxygen dependent Coronary stent restenosis History of hyperkalemia History of hypoglycemia History of ETOH abuse Retroperitoneal bleed History of acute renal failure History of methicillin resistant Staphylococcus aureus infection History of pneumonia History of methamphetamine abuse History of bipolar disorder History of coronary artery disease History of DIC syndrome Surgical History Surgical History History of heart artery stent History of thoracentesis Social History Social History Smoking Status: Current every day smoker Number of Years Smoked: 43 How many cigarettes a day do you smoke? (20 cigarettes=1 Pk): 8 Second hand tobacco smoke exposure: Yes Do you dip or chew tobacco?: No Do you vape?: Yes Patient requests smoking cessation consult: No Initiate information on smoking cessation: No Living arrangement: Assisted living Marital Status: Living Condition: Other Living Condition Notes: 2 bedroom apartment with another person. 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 Prescribed narcotics Are you following a diet prescribed by a doctor: No Are you following a special diet: No POLST Patient has POLST: Yes POLST on file?: Yes POLST CPR Status: Do Not Attempt Resuscitation (DNAR) / Allow Natural Exam Exam Vital Signs: Vital Signs x48h Temp Pulse Resp BP Pulse Ox O2 Flow Rate 02/22/25 13:41 84 16 2 02/22/25 13:38 2 02/22/25 13:36 84 19 121/82 95 2 02/22/25 12:57 36.4 C L 85 22 110/77 91 L 3 Results Vitals Vitals: Vital Signs - 24 hr 02/22/25 12:57 02/22/25 13:36 02/22/25 13:38 Temperature 36.4 C L Temperature Source Temporal Artery Scan Pulse Rate 85 84 Respiratory Rate 22 19 Blood Pressure 110/77 121/82 O2 Saturation 91 L 95 Oxygen Delivery Method Nasal Cannula O2 Source Nasal cannula Nasal cannula If not protocol: Oxygen Flow, liters/minute 3 2 2 Pain Intensity 0 0 02/22/25 13:41 Temperature Temperature Source Pulse Rate 84 Respiratory Rate 16 Blood Pressure O2 Saturation Oxygen Delivery Method O2 Source Nasal cannula If not protocol: Oxygen Flow, liters/minute 2 Pain Intensity Oxygen O2 Source Nasal cannula Labs Labs: Laboratory Tests 02/22/25 02/22/25 02/22/25 13:25 13:30 13:44 WBC 9.0 RBC 4.37 Hgb 13.7 Hct 44.5 MCV 101.8 H MCH 31.4 H MCHC 30.8 L RDW 13.2 Plt Count 245 MPV 9.5 Neut # (Auto) 7.5 H Lymph # (Auto) 0.9 L Mccone # (Auto) 0.5 Eos # (Auto) 0.0 Baso # (Auto) 0.0 Absolute Nucleated RBC 0.00 Nucleated RBC % 0.0 VBG pH VBG pCO2 VBG pO2 VBG HCO3 VBG Total CO2 VBG O2 Saturation VBG Base Excess Sodium 143 Potassium 4.3 Chloride 96 L Carbon Dioxide 45 H* Anion Gap 2.0 L BUN 14 Creatinine 0.6 Estimated GFR (MDRD) 101 Glucose 134 H Lactic Acid 0.5 Calcium 9.4 Magnesium 1.8 Total Bilirubin 0.5 AST 12 ALT 24 Alkaline Phosphatase 101 B-Natriuretic Peptide 134 H Total Protein 7.1 Albumin 4.0 Globulin 3.1 Albumin/Globulin Ratio 1.3 Procalcitonin Immunoas < 0.05 Nasal Adenovirus (PCR) NOT DETECTED Nasal B. parapertussis DNA (PCR) NOT DETECTED Nasal Coronavir 229E PCR NOT DETECTED Nasal Coronavir HKU1 PCR NOT DETECTED Nasal Coronavir NL63 PCR NOT DETECTED Nasal Coronavir OC43 PCR NOT DETECTED Nasal Enterovir/Rhinovir PCR DETECTED A Nasal Influenza B PCR NOT DETECTED Nasal Influenza A PCR NOT DETECTED Nasal Parainfluen 1 PCR NOT DETECTED Nasal Parainfluen 2 PCR NOT DETECTED Nasal Parainfluen 3 PCR NOT DETECTED Nasal Parainfluen 4 PCR NOT DETECTED Nasal RSV (PCR) NOT DETECTED Nasal B.pertussis DNA PCR NOT DETECTED Nasal C.pneumoniae (PCR) NOT DETECTED Chon Human Metapneumo PCR NOT DETECTED Nasal M.pneumoniae (PCR) NOT DETECTED Nasal SARS-CoV-2 (PCR) NOT DETECTED 02/22/25 14:20 WBC RBC Hgb Hct MCV MCH MCHC RDW Plt Count MPV Neut # (Auto) Lymph # (Auto) Mccone # (Auto) Eos # (Auto) Baso # (Auto) Absolute Nucleated RBC Nucleated RBC % VBG pH 7.367 VBG pCO2 76.6 H VBG pO2 115.6 H VBG HCO3 44.4 H VBG Total CO2 46.7 H VBG O2 Saturation 100.0 H VBG Base Excess 18.8 H Sodium Potassium Chloride Carbon Dioxide Anion Gap BUN Creatinine Estimated GFR (MDRD) Glucose Lactic Acid Calcium Magnesium Total Bilirubin AST ALT Alkaline Phosphatase B-Natriuretic Peptide Total Protein Albumin Globulin Albumin/Globulin Ratio Procalcitonin Immunoas Nasal Adenovirus (PCR) Nasal B. parapertussis DNA (PCR) Nasal Coronavir 229E PCR Nasal Coronavir HKU1 PCR Nasal Coronavir NL63 PCR Nasal Coronavir OC43 PCR Nasal Enterovir/Rhinovir PCR Nasal Influenza B PCR Nasal Influenza A PCR Nasal Parainfluen 1 PCR Nasal Parainfluen 2 PCR Nasal Parainfluen 3 PCR Nasal Parainfluen 4 PCR Nasal RSV (PCR) Nasal B.pertussis DNA PCR Nasal C.pneumoniae (PCR) Chon Human Metapneumo PCR Nasal M.pneumoniae (PCR) Nasal SARS-CoV-2 (PCR) PD Medical Decision Making ED course Complexity details: reviewed old records and reviewed results ED course: Patient is 64-year-old female presenting with increased weakness and fatigue after being seen here on the for COPD exacerbation. She was started on antibiotics and steroids after negative CT abdomen for some right lower quadrant pain and chest x-ray showing pneumonitis. Patient finished a course of azithromycin and steroids with minimal improvement in symptoms continues to have increased shortness of breath but remains on 3 L nasal cannula which is at her baseline. She is ANO x 3 here in the ED but appears fatigued. GCS 13. Vitals stable she saturating at 91% on 3 L nasal cannula she is normotensive nontachycardic normal respiratory rate. Chest x-ray here shows persistent right lower lobe pneumonia seen on imaging on 02/14. Patient was given a DuoNeb treatment here in the ED. No significant improvement in symptoms. CBC shows no significant white count no signs of anemia to explain her shortness of breath she has got blood cultures pending but normal lactic acid at this time. BNP well within normal limits. She has normal magnesium and procalcitonin is negative. VBG obtained as her CMP shows some elevated CO2. Her pH is within normal limits but she has significantly elevated CO2 however this is most likely chronic given she is compensating and has elevated bicarb. I reviewed with Dr. Reece hospitalist for treatment who is agreeable with this plan. Patient started on ceftriaxone and some light fluids here in the ED recommendations from Dr. Salguero will monitor patient closely and will admit patient to the floor for treatment. Discharge Plan Discharge Patient Disposition: 67 [facility] DC/Xfer Condition: Stable Clinical Impression: Encephalopathy, Fatigue, Right lower lobe pneumonia COPD (chronic obstructive pulmonary disease) Qualifiers: COPD type: unspecified COPD Qualified Code(s): J44.9 - Chronic obstructive pulmonary disease, unspecified Prescriptions: No Action pantoprazole 20 mg tablet,delayed release (DR/EC) See Rx Instructions .ROUTE .COMPLEX Qty: 30 11RF Dose Instruction: 1 TAB BY MOUTH EVERY MORNING 30 MINS PRIOR TO FIRST MEAL Rx Instructions: 1 TAB BY MOUTH EVERY MORNING 30 MINS PRIOR TO FIRST MEAL cyanocobalamin (vitamin B-12) 1,000 mcg tablet 1,000 mcg PO DAILY Qty: 30 11RF Trelegy Ellipta 100-62.5-25 mcg blister with device 1 inh inhalation Q24H Qty: 60 3RF gabapentin 300 mg capsule See Rx Instructions .ROUTE .COMPLEX Qty: 90 11RF Dose Instruction: 1 CAP BY MOUTH 3 TIMES DAILY Rx Instructions: 1 CAP BY MOUTH 3 TIMES DAILY quetiapine 400 mg tablet 400 mg PO QPM Qty: 90 0RF furosemide 20 mg tablet 20 mg PO DAILY albuterol sulfate 90 mcg/actuation HFA aerosol inhaler 2 puff inhalation TID PRN (Reason: shortness of breath or wheezing) Rx Instructions: Resident may keep and self-administer thiamine HCl (vitamin B1) 100 mg capsule 100 mg PO DAILY alprazolam 0.5 mg tablet 0.5 mg PO BID PRN (Reason: anxiety) Qty: 60 5RF Rx Instructions: May take in AM and PM; not together. senna 8.6 mg capsule 8.6 mg PO QDAY PRN (Reason: constipation) Rx Instructions: Hold for loose stool clopidogrel 75 mg tablet 75 mg PO DAILY Qty: 30 0RF mirtazapine 30 mg tablet 45 mg PO HS Qty: 30 11RF quetiapine 200 mg tablet 200 mg PO QDAY Qty: 30 11RF Rx Instructions: Give at noon daily quetiapine 200 mg tablet 200 mg PO QDAY PRN (Reason: agitation, paranoia, hallucinations) aspirin [Brenda Low Dose Aspirin] 81 mg tablet,delayed release (DR/EC) 81 mg PO DAILY Qty: 30 11RF ipratropium-albuterol 0.5 mg-3 mg(2.5 mg base)/3 mL solution for nebulization 3 ml inhalation QID Qty: 180 12RF Rx Instructions: Space out evenly q 6 hrs magnesium gluconate 12.5 mg magne- sium (250 mg) tablet 12.5 mg PO BID Qty: 90 3RF cholecalciferol (vitamin D3) 50 mcg (2,000 unit) capsule 50 mcg PO QDAY Qty: 30 0RF polyethylene glycol 3350 17 gram/dose powder 17 g PO QDAY PRN (Reason: constipation) sennosides [senna] 8.6 mg tablet 8.6 mg PO BID Qty: 60 11RF morphine concentrate 100 mg/5 mL (20 mg/mL) solution 15 mg PO Q4H Qty: 240 0RF buspirone 10 mg tablet 10 mg PO BID Qty: 90 3RF prednisone 5 mg tablet 10 mg PO QDAY Qty: 30 10RF guaifenesin 100 mg/5 mL liquid 200 mg PO Q4H 7 Days Qty: 420 4RF Rx Instructions: while awake with full glass of water x 7 days. Then change to q4hrs PRN Print Language: Prydeinig
[2025-02-22 13:35] LABS: HCT - HEMATOCRIT 44.5 % (37.0-47.0); HGB - HEMOGLOBIN 13.7 g/dL (12.0-16.0); MEAN PLATELET VOLUME 9.5 fL (7.9-10.8); NRBC ABSOLUTE COUNT (AUTO) 0.00 x10^3/uL; NUCLEATED RED BLOOD CELLS AUTO 0.0 /100WBC; PLT - PLATELET COUNT 245 10^3/uL (130-450); RED CELL DISTRIBUTION WIDTH 13.2 % (12.0-15.0)
[2025-02-22] MEDS: IPRATROPIUM/ALBUTEROL 3 ML NEB INH STA (13:38)
[2025-02-22 13:59] LABS: ALT ALANINE AMINOTRANSFERASE 24.0 IU/L (10-60); AST ASPARTATE AMINOTRANSFERASE 12.0 IU/L (10-42); BUN - BLOOD UREA NITROGEN 14.0 mg/dL (6-20); CARBON DIOXIDE - CO2 45.0 mmol/L (21-32); CREATININE 0.6 mg/dL (0.6-1.3); GFR - MDRD 101.0 (>89)
--- NOTE | 2025-02-22 13:59 | XRAY Report ---
PROCEDURE: XR Chest 1V INDICATIONS: Sepsis TECHNIQUE: One view of the chest was acquired. COMPARISON: 02/14/2025 FINDINGS: Surgical changes and devices: None. Lungs and pleura: Patchy right basilar opacities with small pleural effusions. Known pulmonary nodules seen on comparison CT are not well demonstrated. Mediastinum: Mediastinal contours appear normal. Heart size is normal. Moderate hiatal hernia. Bones and chest wall: No suspicious bony lesions. Overlying soft tissues appear unremarkable. IMPRESSION: Suspected right lower lobe infection, similar to 02/14/2025. Known pulmonary nodules seen on comparison CT are not well demonstrated. Reviewed by: Alexander Chung MD on 02/22/2025 12:56 PM [facility] Approved by: Alexander Chung MD on 02/22/2025 12:56 PM [facility] Station ID: [id number]
[2025-02-22 14:25] LABS: VBG BASE EXCESS 18.8 mmol/L (-2 - +2); VBG PCO2 76.6 mmHg (41-51); VBG PH 7.367 (7.31-7.41); VBG PO2 115.6 mmHg (25-47); VBG TOTAL CO2 46.7 mmol/L (24-29)
[2025-02-22 14:48] LABS: B. PARAPERTUSSIS- RESP PCR PAN NOT DETECTED; B. PERTUSSIS- RESP PCR PANEL NOT DETECTED; C. PNEUMONIAE- RESP PCR PANEL NOT DETECTED; CORONAVIRUS 229E-RESP PCR NOT DETECTED; CORONAVIRUS HKU1-RESP PCR NOT DETECTED; CORONAVIRUS NL63-RESP PCR NOT DETECTED; CORONAVIRUS OC43-RESP PCR NOT DETECTED; HUMAN METAPNEUMOVIRUS NOT DETECTED; INFLUENZA A- RESP PCR PANEL NOT DETECTED; INFLUENZA B - RESP PCR PANEL NOT DETECTED; M. PNEUMONIAE- RESP PCR PANEL NOT DETECTED; PARAINFLUENZA VIRUS 1 NOT DETECTED; PARAINFLUENZA VIRUS 2 NOT DETECTED; PARAINFLUENZA VIRUS 4 NOT DETECTED; RHINOVIRUS/ENTEROVIRUS DETECTED; RSV- RESP PCR PANEL NOT DETECTED; SARS-CoV-2 -RESP PCR PANEL NOT DETECTED
--- NOTE | 2025-02-22 15:04 | HISTORY & PHYSICAL EXAMINATION ---
Chief Complaint Chief Complaint Chief Complaint: Somnolence, fatigue History of Present Illness Admitted From Admitted From:: ED History Obtained From Records Reviewed: [facility] History obtained from: Patient, Daughter, EMR, ED Provider History of Present Illness HPI Comment/Other: Patient is a 64-year-old female with past medical history notable for CAD, COPD on 2 to 3 L O2 via NC chronically, prior polysubstance abuse, uncomplicated opiate dependence, TUD, generalized anxiety disorder who was recently seen in the ED for pneumonia and treated outpatient. She follows with palliative care and primary care in the community. She is a resident of [facility]. Patient and her daughter Merline are present in the room. History is obtained from both of them. The patient is a reasonable historian. She was seen in the ED on 02/14 for unexplained disrobing and otherwise altered mentation at her assisted living facility. She was satting at 84% when EMS arrived. Unclear whether she was wearing her chronic oxygen. At that time, she was found to have possible pneumonitis versus pneumonia on her chest x-ray. She was prescribed Augmentin and Z-Eduardo. Steroids were discussed as well, but I do not send them actually prescribed. Possibly because she is on chronic prednisone 5 mg. She left the hospital from the ED and reportedly never started feeling better. Continue to get worse over the next week. She was started to have some diarrhea from the antibiotics. She is finished both antibiotics. She did not eat Chirag dinner, and shares that she was really looking forward to it. In the interim, palliative care has seen her for a regularly scheduled visit. They relay as well that she was not feeling better. She had a significant cough which is improved with guaifenesin. She had multiple other somatic complaints. Her daughter went to see her at [facility] today, and found that she was more confused, more fatigued than normal. She did not look herself. She is not having any robin fevers but having some chills. She has been weaker and having to use up to 4 L of oxygen at times. With all of this, the daughter brought her back to the ED. She has no leukocytosis (resolved from 27,000 8 days ago). Her VBG shows compensated respiratory acidosis consistent with her diagnosis of COPD. Her bicarb on her chemistry is elevated suggestive of contraction in the setting of her diarrhea. Her potassium is normal. Her renal function is normal. Procalcitonin is undetected. She did test positive on the and today for rhinovirus. Her chest x-ray is read as suggestive for right infiltrate, though not fully demonstrated on my review. The patient is DNR/selective intervention. Her daughter is her POA and is very supportive. The patient does not want to be in the hospital for longer she has to be. She follows with palliative care in the community and they have an appointment scheduled for February. Meds/Allgy Home Medications Ambulatory Orders Medication Instructions Recorded Confirmed albuterol sulfate 90 mcg/actuation 2 puff inhalation T ID PRN 07/10/24 02/22/25 aerosol inhaler shortness of breath or wheez ing furosemide 20 mg tablet 20 mg PO DAILY 07/10/2401/27 thiamine HCl (vitamin B1) 100 mg 100 mg PO DAILY 07/1002/22/25 capsule mirtazapine 30 mg tablet 45 mg (1.5 x 30 mg) PO HS #3 0 tabs 08/26/24 02/22/25 quetiapine 200 mg tablet 200 mg PO QDAY #30 tabs 0703/2202/22/25 quetiapine 200 mg tablet 200 mg PO QDAY PRN agitation , 08/26/24 02/22/25 paranoia, hallucinations aspirin 81 mg tablet,delayed 81 mg PO DAILY #30 tabs 0 08/28/24 02/22/25 release (Brenda Low Dose Aspirin) ipratropium 0.5 mg-albuterol 3 mg 3 ml inhalation QID #180 mL 09/30/24 02/22/25 (2.5 mg base)/3 mL nebulization soln pantoprazole 20 mg tablet,delayed See Rx Instructions .Route 10/21/24 02/22/25 release .COMPLEX #30 tabs cholecalciferol (vitamin D3) 50 50 mcg PO QDAY #30 cap s 12/09/24 02/22/25 mcg (2,000 unit) capsule cyanocobalamin (vitamin B-12) 1,000 mcg PO DAILY #30 t abs 12/09/24 02/22/25 1,000 mcg tablet magnesium gluconate 12.5 mg 12.5 mg PO BID #90 tabs 02/22/25 magnesium (250 mg) tablet polyethylene glycol 3350 17 17 g PO QDAY PRN constipat ion 12/09/24 02/22/25 gram/dose oral powder fluticasone fur. 100 mcg-umeclid 1 inh inhalation Q24H #60 ea 12/22/24 02/22/25 62.5 mcg-vilant 25 mcg inhalat.powder (Trelegy Ellipta) morphine concentrate 100 mg/5 mL 15 mg (0.75 mL) PO Q4 H #240 mL 01/06/25 02/22/25 (20 mg/mL) oral solution sennosides 8.6 mg tablet (senna) 8.6 mg PO BID #60 tab s 01/06/25 02/22/25 gabapentin 300 mg capsule See Rx Instructions .Route 1 03/11/24 02/22/25 .COMPLEX #90 caps alprazolam 0.5 mg tablet 0.5 mg PO BID PRN anxiety #6 0 tabs 02/05/25 02/22/25 clopidogrel 75 mg tablet 75 mg PO DAILY #30 tabs 01/2602/22/25 sennosides 8.6 mg capsule (senna) 8.6 mg PO QDAY PRN c onstipation 02/05/25 02/22/25 buspirone 10 mg tablet 10 mg PO BID #90 tabs 02/22/25 guaifenesin 100 mg/5 mL oral liquid 200 mg (10 mL) PO Q4H 7 days #420 02/16/25 02/22/25 mL prednisone 5 mg tablet 10 mg (2 x 5 mg) PO QDAY #30 tabs 02/16/25 02/22/25 quetiapine 400 mg tablet 400 mg PO QPM #90 tabs 02/1702/22/25 Allergies Allergies Allergy/AdvReac Type Severity Reaction Status Date / Time No Known Drug Allergies Allergy Verified 02/22/25 13:03 PFSH Active Problems All Active Problems (Updated 02/22/25 @ 17:40 by Dakota Asher DO) Uncomplicated opioid dependence (Acute) Diarrhea (Acute) Right lower lobe pneumonia (Acute) Fatigue (Acute) Encephalopathy (Acute) Pneumonia (Acute) Acute exacerbation of chronic obstructive pulmonary disease (Acute) Hypotension (Acute) Carpal tunnel syndrome on both sides (Acute) Drug induced constipation (Acute) Hepatomegaly (Chronic) Amphetamine substance use disorder, moderate, in sustained remission, dependence (Acute) Tobacco use disorder, moderate, dependence (Acute) Localized swelling of both lower legs (Acute) Counseling regarding advanced directives and goals of care (Acute) Chronic respiratory failure with hypoxia, on home oxygen therapy (Acute) Chronic congestion of paranasal sinus (Chronic) Hypoxia (Acute) Smokers' cough (Chronic) Pulmonary embolism (Acute) Stented coronary artery (Chronic) GERD (gastroesophageal reflux disease) (Chronic) Chronic dyspnea (Chronic) Generalized anxiety disorder (Chronic) Peripheral neuropathy (Chronic) Chronic pain syndrome (Chronic) Adjustment disorder with depressed mood (Chronic) Heart failure with reduced ejection fraction (Chronic) Continuous opioid dependence (Chronic) Presence of IVC filter (Chronic) Left leg DVT (Chronic) COPD (chronic obstructive pulmonary disease) (Chronic) Anemia (Chronic) CAD (coronary artery disease) (Chronic) Bipolar 1 disorder (Chronic) Medical History Medical History (Updated 02/22/25 @ 17:40 by Dakota Asher DO) History of ST elevation myocardial infarction (STEMI) 08/2023 & 09/2023 History of rhabdomyolysis Acute hyperkalemia Leukocytosis Methamphetamine abuse in remission Vitamin D deficiency History of DVT (deep vein thrombosis) History of CHF (congestive heart failure) History of chronic respiratory failure Oxygen dependent Coronary stent restenosis History of hyperkalemia History of hypoglycemia History of ETOH abuse Retroperitoneal bleed History of acute renal failure History of methicillin resistant Staphylococcus aureus infection History of pneumonia History of methamphetamine abuse History of bipolar disorder History of coronary artery disease History of DIC syndrome Surgical History Surgical History History of heart artery stent History of thoracentesis Social History Social History Smoking Status: Current every day smoker Number of Years Smoked: 43 How many cigarettes a day do you smoke? (20 cigarettes=1 Pk): 8 Second hand tobacco smoke exposure: Yes Do you dip or chew tobacco?: No Do you vape?: Yes Patient requests smoking cessation consult: No Initiate information on smoking cessation: No Living arrangement: Assisted living Marital Status: Living Condition: Other Living Condition Notes: 2 bedroom apartment with another person. Shared kitchen and bathroom Support Person: Yes Living Situation Details: [facility] April 2024 Has a Durable Power of Corporate Auditor for Health Care?: Yes Name / Relationship: Cahsidy/Daughter LUDWIN on file?: Yes Has Health Care Directive?: No Health Care Directive on file?: No Physical Activity: Walking Level: Independent Do you feel safe in your home environment?: Yes History of physical, verbal, emotional, or financial abuse?: No ETOH Use: None Frequency: Occasional Substance Use: cannabis (any form) and opiods/painkillers Substance Use Details: Vape and edibles. Prescribed narcotics Are you following a diet prescribed by a doctor: No Are you following a special diet: No POLST Patient has POLST: Yes POLST on file?: Yes POLST CPR Status: Do Not Attempt Resuscitation (DNAR) / Allow Natural Exam Exam Vital Signs: Vital Signs x48h Temp Pulse Pulse Resp BP BP Pulse Ox 02/22/25 16:03 36.4 C L 80 18 106/81 93 02/22/25 15:43 80 16 107/78 95 02/22/25 15:08 81 16 107/73 93 02/22/25 13:41 84 16 02/22/25 13:38 02/22/25 13:36 84 19 121/82 95 02/22/25 12:57 36.4 C L 85 22 110/77 91 L O2 Flow Rate 02/22/25 16:03 3 02/22/25 15:43 3 02/22/25 15:08 2 02/22/25 13:41 2 02/22/25 13:38 2 02/22/25 13:36 2 02/22/25 12:57 3 GEN: No acute distress. Conversant. Occasional productive cough HEENT: NC/AT, normal appearance of external ears and nose. Hearing baseline. Cardiac: Regular rate and rhythm. No murmurs. Generally euvolemic on exam. Pulm: Coarse lung sounds throughout. Raspy versus rhonchorous. Normal effort on 2 L. No wheezes appreciated. Abdomen: Soft, nontender, nondistended. No rebound or guarding Extremities: Moves all 4 extremities equally. Normal tone. Neuro: Face symmetric, CN II through XII intact grossly. No focal neurologic deficits. Psych: Reasonable historian. Confabulates some. Oriented x 3. Mood euthymic. Affect congruent. Conclusion/Plan Problem List (1) Encephalopathy: Qualifiers: Encephalopathy type: metabolic Qualified Code(s): G93.41 - Metabolic encephalopathy (2) Fatigue: (3) Pneumonia: Plan: Patient possibly with a focal pneumonia on the right. She was recently treated for pneumonia. I suspect this may be latent radiographic findings given her negative procalcitonin, resolved white blood cell count, and improved oxygenation. I have personally reviewed her chest x-ray, and I do not appreciate a clear focal consolidation in the right lower lung is reported. It looks effectively unchanged from exam in the ED 8 days prior to admission. The patient has a wet cough that has improved with expectorants. I would suspect maybe that this patient had diarrhea and general malaise following her recent illness. This is led her to be more hypovolemic as indicated by her contraction alkalosis. In addition this could contribute to her weakness and further fatigue. Further she likely has a metabolic encephalopathy either because of her hypovolemia in general versus her hypercapnia, though her gas is reasonably well compensated. - Discussed case with ED provider and I have made the decision to admit patient to observation status. - Patient got ceftriaxone in the ED 1 g. - Monitor off antibiotics at this time - CBC and BMP a.m. - Follow-up blood cultures drawn in the ED - Follow-up UA ordered by the ED - Diarrhea as below - Started on NS 100 mL/h Qualifiers: Laterality: right Lung location: lower lobe of lung Pneumonia type: d ue to unspecified organism Qualified Code(s): J18.9 - Pneumonia, unspecified organism (4) Diarrhea: Plan: Patient has had multiple episodes of diarrhea since she started on antibiotics on 02/14. She states that every time she pees she has episodes of diarrhea. Suspect this is mostly related to her antibiotic exposure. Less likely infectious in the setting of her normal white count. She is at risk for C. difficile given recent antibiotics exposure. She has been unable to have a bowel movement yet this hospitalization. - GI stool PCR ordered by ED, stool culture ordered by ED, C. difficile PCR ordered - Rule out contact precautions along rule out. - If GI pathogens are negative, I will start on loperamide - Fluids as above. (5) COPD (chronic obstructive pulmonary disease): Qualifiers: COPD type: unspecified COPD Qualified Code(s): J44.9 - Chronic obstructive pulmonary disease, unspecified (6) Chronic respiratory failure with hypoxia: Plan: Longstanding history of COPD. She is on her baseline level of oxygen she is at home 3 L. Overall her current presentation is not consistent with COPD exacerbation. No increased sputum production, no increased dyspnea. Home meds include Trelegy Ellipta inhaler, DuoNebs, as needed albuterol, and prednisone. Prednisone was recently increased from 5 mg to 10 mg. - Continue formulary equivalents of inhalers - Continue home prednisone 10 mg daily - As needed DuoNebs q4H - O2 sat goal 88 to 92% (7) CAD (coronary artery disease): Plan: Patient has no anginal symptoms at this time. Denies any chest pain or dyspnea. Her home regimen includes DAPT. No nitrates - Continue ASA 81 mg, clopidogrel 75 mg - Consider discussion this hospitalization of de-escalating to just [id number] Qualifiers: Associated angina: with unspecified form of angina Coronary Disease- Associated Artery/Lesion type: bypass graft, nonautologous biological Qualified Code(s): I25.739 - Atherosclerosis of nonautologous biological coronary artery bypass graft(s) with unspecified angina pectoris (8) CHF (congestive heart failure): Plan: Unclear if patient has congestive heart failure chest peripheral artery disease resulting in lower extremity edema. I do not see an echo on file. She has a diagnosis of HFrEF and her chart, but is not on HFrEF meds. She appears to be clinically euvolemic on exam. She has trace edema in her lower extremities if anything. - Continue ASSISTANT PRODUCE MANAGER Lasix 20 mg p.o. daily - Avoiding rapid fluid boluses above in clinically stable patient Qualifiers: Heart failure type: unspecified Heart failure chronicity: chronic Q ualified Code(s): I50.9 - Heart failure, unspecified (9) Generalized anxiety disorder: Plan: Mood is euthymic. Patient on multiple medicines for this prior to arrival including mirtazapine 45 mg, BuSpar 10 mg twice daily, quetiapine 200 mg a.m., 40 mg nightly. - Continue meds as above (10) Peripheral neuropathy: Plan: Remains stable on home gabapentin 300 mg 3 times daily. - Continue ASSISTANT PRODUCE MANAGER gabapentin - Monitor renal function. Qualifiers: Peripheral neuropathy type: polyneuropathy, unspecified Qualified Code(s): G62.9 - Polyneuropathy, unspecified (11) Uncomplicated opioid dependence: Plan: Patient was previously on hospice at 1 time. Unclear if she was started on opiates at that time. She takes 15 mg morphine oral concentrate every 4 hours fairly regularly at baseline. She also takes gabapentin as above. - Continue scheduled twice daily sennosides - Patient does not take scheduled MiraLAX at home, we will avoid starting in the setting of her recent diarrhea. - Will transition to morphine pills during this hospitalization due to liquid morphine shortage Plan By problem as above. I spent a total of 81 minutes in the care of this patient today. This time was spent reviewing labs, vital signs, imaging, interviewing and examining the patient, and discussing plan of care with them and their other care providers. Extensive discussion with the patient and her family about her plan of care. Patient is being admitted with a problem of unclear significance in the setting of metabolic encephalopathy. Data was reviewed as above. Case was discussed with the ED provider and decision was made to admit the patient to observation. [id number] Lab Results Lab results reviewed: Yes 02/22/25 13:25 02/22/25 13:25 Diagnostic Imaging Results Diagnostic Imaging Results: positive Final report reviewed and Read independently Core Measures Anticipated LOS I expect patient to be DC'd or transferred within 96 hours.: Yes DVT/VTE - Prophylaxis VTE/DVT Device ordered at admit?: Yes
[2025-02-22] MEDS: NICOTINE 7 MG PATCH TOP STA (15:19)
[2025-02-22] MEDS: SODIUM CHLORIDE 0.9% 1,000 ML IV STA (15:20)
[2025-02-22] MEDS: cefTRIAXone 1 GM VIAL IVP STA (15:23)
[2025-02-22] MEDS: cefTRIAXone 1 GM in SODIUM CHLORIDE 0.9% MINIBAG 100 ML IV STA (15:23)
[2025-02-22] MEDS ORDERED: ONDANSETRON 4 MG/2 ML VIAL IVP PRN (16:02)
[2025-02-22] MEDS ORDERED: ONDANSETRON ODT 4 MG TABLET TL PRN (16:02)
[2025-02-22] MEDS ORDERED: SODIUM CHLORIDE FLUSH 0.9% 10 ML SYRINGE IVP PRN (16:02)
[2025-02-22] MEDS: guaiFENesin 100 MG/5 ML UDC PO SCH (16:38)
[2025-02-22] MEDS: SODIUM CHLORIDE FLUSH 0.9% 10 ML SYRINGE IVP SCH (16:38)
[2025-02-22] MEDS: MORPHINE IR 15 MG TABLET PO SCH (16:38)
[2025-02-22] MEDS: NON FORMULARY MED (Fluticasone-Umeclidin-Vilanter [Trelegy Ellipta] 100-62.5-25 mcg bliste INH SCH (18:18)
[2025-02-22] MEDS: SODIUM CHLORIDE 0.9% 1,000 ML IV SCH (18:18)
[2025-02-22] MEDS ORDERED: IPRATROPIUM 0.2 MG/ML NEB INH SCH (19:00)
[2025-02-22] MEDS: FORMOTEROL FUMARATE NEB 20 MCG/2 ML INH SCH (20:30)
[2025-02-22] MEDS: BUDESONIDE 0.5 MG/2 ML NEB INH SCH (20:30)
[2025-02-22] MEDS: IPRATROPIUM 0.2 MG/ML NEB INH PRN (20:30)
[2025-02-22] MEDS: MIRTAZAPINE 15 MG TABLET PO SCH (21:06)
[2025-02-22] MEDS: GABAPENTIN 300 MG CAPSULE PO SCH (21:33)
[2025-02-22 23:05] LABS: GLUCOSE, URINE (UA) NEGATIVE (NEGATIVE); KETONES,URINE (UA) NEGATIVE (NEGATIVE); OCCULT BLOOD,URINE NEGATIVE (NEGATIVE)
[2025-02-22 23:16] LABS: SQUAMOUS EPITHELIAL CELL,UR FEW Squamous (<= Few)
[2025-02-22 23:59] LABS: COCAINE SCREEN URINE NEGATIVE (NEGATIVE); METHAMPHETAMINES SCREEN, URINE NEGATIVE (NEGATIVE); OPIATE SCREEN, URINE POSITIVE (NEGATIVE); THC CANNABINOID SCREEN, URINE POSITIVE (NEGATIVE)
[2025-02-23] LABS: AMPHETAMINE SCREEN,URINE NEGATIVE (NEGATIVE); BARBITURATE SCREEN,UR NEGATIVE (NEGATIVE); BENZODIAZEPINES SCREEN, URINE POSITIVE (NEGATIVE); BUPRENORPHINE SCREEN, URINE NEGATIVE (NEGATIVE)
[2025-02-23] MEDS ORDERED: NICOTINE 7 MG PATCH TOP PRN (08:08)
[2025-02-23 08:28] LABS: HCT - HEMATOCRIT 44.6 % (37.0-47.0); HGB - HEMOGLOBIN 13.4 g/dL (12.0-16.0); MEAN PLATELET VOLUME 9.3 fL (7.9-10.8); NRBC ABSOLUTE COUNT (AUTO) 0.00 x10^3/uL; NUCLEATED RED BLOOD CELLS AUTO 0.0 /100WBC; PLT - PLATELET COUNT 229 10^3/uL (130-450); RED CELL DISTRIBUTION WIDTH 13.2 % (12.0-15.0)
[2025-02-23 09:00] LABS: ALT ALANINE AMINOTRANSFERASE 19.0 IU/L (10-60); AST ASPARTATE AMINOTRANSFERASE 10.0 IU/L (10-42); BUN - BLOOD UREA NITROGEN 13.0 mg/dL (6-20); CARBON DIOXIDE - CO2 42.0 mmol/L (21-32); CREATININE 0.6 mg/dL (0.6-1.3); GFR - MDRD 101.0 (>89)
[2025-02-23] MEDS: ENOXAPARIN 40 MG/0.4 ML SYRINGE SUBQ SCH (09:06)
[2025-02-23] MEDS: ASPIRIN EC 81 MG TABLET PO SCH (09:07)
[2025-02-23] MEDS: THIAMINE 100 MG TABLET PO SCH (09:07)
[2025-02-23] MEDS: FUROSEMIDE 20 MG TABLET PO SCH (09:07)
[2025-02-23] MEDS: CLOPIDOGREL 75 MG TABLET PO SCH (09:07)
--- NOTE | 2025-02-23 13:03 | PHARMACY PROGRESS NOTE ---
Best Possible Medication History Admit Date and Time: 02/22/25 1439 Home Medications Medication Instructions Recorded Confirmed Type albuterol sulfate 90 mcg/actuation 2 puff inhalation T ID PRN 07/10/24 02/22/25 History aerosol inhaler shortness of breath or wheez ing furosemide 20 mg tablet 20 mg PO DAILY 07/10/2401/27 History thiamine HCl (vitamin B1) 100 mg 100 mg PO DAILY 07/1002/22/25 History capsule quetiapine 200 mg tablet 200 mg PO DAILY PRN agitatio n, 08/26/24 02/23/25 History paranoia, hallucinations aspirin 81 mg tablet,delayed 81 mg PO DAILY #30 tabs 0 08/28/24 02/22/25 Rx release (Brenda Low Dose Aspirin) pantoprazole 20 mg tablet,delayed See Rx Instructions .Route 10/21/24 02/22/25 Rx release .COMPLEX #30 tabs cyanocobalamin (vitamin B-12) 1,000 mcg PO DAILY #30 t abs 12/09/24 02/22/25 Rx 1,000 mcg tablet magnesium gluconate 12.5 mg 12.5 mg PO BID #90 tabs 02/22/25 Rx magnesium (250 mg) tablet polyethylene glycol 3350 17 17 g PO QDAY PRN constipat ion 12/09/24 02/22/25 History gram/dose oral powder fluticasone fur. 100 mcg-umeclid 1 inh inhalation Q24H #60 ea 12/22/24 02/22/25 Rx 62.5 mcg-vilant 25 mcg inhalat.powder (Trelegy Ellipta) morphine concentrate 100 mg/5 mL 15 mg (0.75 mL) PO Q4 H #240 mL 01/06/25 02/22/25 Rx (20 mg/mL) oral solution gabapentin 300 mg capsule See Rx Instructions .Route 1 03/11/24 02/22/25 Rx .COMPLEX #90 caps alprazolam 0.5 mg tablet 0.5 mg PO BID PRN anxiety #6 0 tabs 02/05/25 02/22/25 Rx clopidogrel 75 mg tablet 75 mg PO DAILY #30 tabs 01/2602/22/25 Rx sennosides 8.6 mg capsule (senna) 8.6 mg PO DAILY PRN constipation 02/05/25 02/23/25 History buspirone 10 mg tablet 10 mg PO BID #90 tabs 02/22/25 Rx guaifenesin 100 mg/5 mL oral liquid 200 mg (10 mL) PO Q4H 7 days #420 02/16/25 02/22/25 Rx mL quetiapine 400 mg tablet 400 mg PO QPM #90 tabs 02/1702/22/25 Rx buspirone 15 mg tablet 15 mg PO DAILY 02/23/2501/27 History cholecalciferol (vitamin D3) 50 50 mcg PO DAILY 02/23/25 History mcg (2,000 unit) capsule mirtazapine 45 mg tablet 45 mg PO HS 02/23/25 5 History prednisone 5 mg tablet 10 mg PO DAILY 02/23/2501/27 History quetiapine 200 mg tablet 200 mg PO DAILY 02/23/25 History Processed by: Pharmacy Medications reviewed in ED?: Yes Medication History completed: Yes Patient Interview: Completed Secondary Source(s): Insurance records [facility] Statement: As the person ultimately responsible for medication therapy, providers are able to order a medication from an existing home medication list in [facility] via the "Reconcile Routine" prior to Confirmation of that medication by wan support specialist. Such practice is discouraged except when the physician, in their clinical judgment, deems that a medical need exists for a medication without regard to previous use.
--- NOTE | 2025-02-23 16:56 | PROVIDER PROGRESS NOTE ---
Subjective Prog Note Date Prog Note Date: 02/23/25 Prog Note Time: 16:31 Subjective Subjective: Patient had a very eventful evening. She took her Seroquel last night and went to sleep normally. She was awoken and offered her morphine and declined it. Later in the evening around midnight she became more anxious and agitated. She was tremulous. No meds were given until her home alprazolam was given this morning. She is more directable today throughout the day. Clarified with the patient that she does take her alprazolam scheduled effectively twice daily. She also smokes a pack of cigarettes a day, and was only on a 7 mg nicotine patch. Patient denies any fevers or chills. No significant cough. Denies chest pain, abdominal pain, nausea or vomiting. She still endorses diarrhea, but per nursing has not had a bowel movement yet. She ambulated with her daughter to the bathroom and micturated, but no stool. Current Medications Current Medications Current Medications: Current Medications Generic Name Dose Route Start Last Admin Trade Name Freq PRN Reason Stop Dose Admin Acetaminophen 650 mg 02/22/25 16:02 Acetaminophen 325 Mg Tablet PO Q4HR PRN Pain 1 to 4, or Fever Alprazolam 0.5 mg 02/23/25 21:00 Alprazolam 0.25 Mg Tablet PO BID JUANA Aspirin 81 mg 02/23/25 09:00 02/23/25 09:07 Aspirin Ec 81 Mg Tablet PO 81 mg DAILY JUANA Administration Budesonide 0.5 mg 02/22/25 19:00 02/23/25 05:43 Budesonide 0.5 Mg/2 Ml Neb INH 0.5 mg RTBID JUANA Administration Buspirone HCl 10 mg 02/22/25 21:00 02/23/25 09:10 Buspirone 5 Mg Tablet PO 10 mg BID JUANA Administration Clopidogrel Bisulfate 75 mg 02/23/25 09:00 02/23/25 09:07 Clopidogrel 75 Mg Tablet PO 75 mg DAILY JUANA Administration Enoxaparin Sodium 40 mg 02/23/25 09:00 02/23/25 09:06 Enoxaparin 40 Mg/0.4 Ml Syringe SUBQ 40 mg DAILY JUANA Administration Formoterol Fumarate 20 mcg 02/22/25 19:00 02/23/25 05:43 Formoterol Fumarate Neb 20 Mcg/2 Ml INH 20 mcg RTBID JUANA Administration Furosemide 20 mg 02/23/25 09:00 02/23/25 09:07 Furosemide 20 Mg Tablet PO 20 mg DAILY JUANA Administration Gabapentin 300 mg 02/22/25 22:00 02/23/25 13:24 Gabapentin 300 Mg Capsule PO 300 mg TID JUANA Administration Sodium Chloride 1,000 mls @ 100 mls/hr 02/22/25 17:00 02/23/25 13:24 Normal Saline 0.9% IV 100 mls/hr .Q10H JUANA Administration Ipratropium [place] 0.5 mg 02/22/25 17:30 02/23/25 05:43 Ipratropium 0.2 Mg/Ml Neb INH 0.5 mg RTQ4H PRN Administration Dyspnea Mirtazapine 45 mg 02/22/25 21:00 02/22/25 21:06 Mirtazapine 15 Mg Tablet PO 45 mg HS JUANA Administration Morphine Sulfate 15 mg 02/22/25 17:00 02/23/25 13:24 Morphine Ir 15 Mg Tablet PO 15 mg Q4H JUANA Administration Nicotine 1 patch 02/23/25 16:10 Nicotine 21 Mg Patch TOP DAILY JUANA Ondansetron HCl 4 mg 02/22/25 16:02 Ondansetron Odt 4 Mg Tablet TL Q6HR PRN Nausea / Vomiting Ondansetron HCl 4 mg 02/22/25 16:02 Ondansetron 4 Mg/2 Ml Vial IVP Q6HR PRN Nausea / Vomiting Prednisone 5 mg 02/24/25 09:00 Prednisone 5 Mg Tablet PO DAILY JUANA Quetiapine Fumarate 400 mg 02/22/25 21:00 02/22/25 21:04 Quetiapine 100 Mg Tablet PO 400 mg QPM JUANA Administration Quetiapine Fumarate 200 mg 02/23/25 09:00 02/23/25 09:10 Quetiapine 100 Mg Tablet PO 200 mg DAILY JUANA Administration Quetiapine Fumarate 200 mg 02/22/25 16:02 Quetiapine 100 Mg Tablet PO DAILY PRN agitation, paranoia, hallucina Sodium Chloride 10 ml 02/22/25 16:02 Sodium Chloride Flush 0.9% 10 Ml Syringe IVP PRN PRN NEEDED PER PROVIDER ORDERS Sodium Chloride 10 ml 02/22/25 17:00 02/23/25 09:06 Sodium Chloride Flush 0.9% 10 Ml Syringe IVP 10 ml 0100,0900,1700 JUANA Administration Thiamine HCl 100 mg 02/23/25 09:00 02/23/25 09:07 Thiamine 100 Mg Tablet PO 100 mg DAILY JUANA Administration Objective Vital Signs/Intake & Output Reviewed Vital Signs: Yes Vital Signs: Vital Signs x48h Temp Pulse Resp BP Pulse Ox O2 Flow Rate 02/23/25 12:00 36.6 C 84 18 114/78 91 L 2 02/23/25 10:45 36.6 C 84 16 114/78 91 L 2 Intake & Output: Intake & Output 02/20/25 02/21/25 02/22/25 02/23/25 23:59 23:59 23:59 23:59 Intake Total 1100 / 1100 2158 / 2158 Output Total 250 / 250 400 / 400 Balance 850 / 850 1758 / 1758 Weight (kg) 65.5 kg Objective Comments/Other: GEN: No acute distress. Conversant. Occasional productive cough HEENT: NC/AT, normal appearance of external ears and nose. Hearing baseline. Cardiac: Regular rate and rhythm. No murmurs. Generally euvolemic on exam. Pulm: He no adventitial lung sounds. Normal effort on 2 L. No wheezes appreciated. Abdomen: Soft, nontender, nondistended. No rebound or guarding Extremities: Moves all 4 extremities equally. Normal tone. Neuro: Face symmetric, CN II through XII intact grossly. No focal neurologic deficits. She has a coarse High amplitude intention tremor. Psych: Reasonable historian. Confabulates some. Oriented x 3. Mood euthymic. Affect congruent. Lab Results 02/23/25 08:21 02/23/25 08:21 Other Labs: Lab Results x24hrs 02/23/25 02/23/25 02/22/25 Range/Units 08:21 06:00 22:45 WBC 8.9 (4.8-10.8) x10^3/uL RBC 4.31 (4.20-5.40) 10^6/uL Hgb 13.4 (12.0-16.0) g/dL Hct 44.6 (37.0-47.0) % MCV 103.5 H (81.0-99.0) fL MCH 31.1 H (27.0-31.0) pg MCHC 30.0 L (32.0-36.0) g/dL RDW 13.2 (12.0-15.0) % Plt Count 229 (130-450) 10^3/uL MPV 9.3 (7.9-10.8) fL Neut # (Auto) 7.2 H (1.5-6.6) 10^3/uL Lymph # (Auto) 0.9 L (1.5-3.5) 10^3/uL [place] # (Auto) 0.6 (0.0-1.0) 10^3/uL Eos # (Auto) 0.2 (0.0-0.7) 10^3/uL Baso # (Auto) 0.0 (0.0-0.1) 10^3/uL Absolute Nucleated RBC 0.00 x10^3/uL Nucleated RBC % 0.0 /100WBC Sodium 142 (135-145) mmol/L Potassium 4.2 (3.5-4.5) mmol/L Chloride 99 L (101-111) mmol/L Carbon Dioxide 42 H* (21-32) mmol/L Anion Gap 1.0 L (6-13) BUN 13 (6-20) mg/dL Creatinine 0.6 (0.6-1.3) mg/dL Estimated GFR (MDRD) 101 (>89) Glucose 96 (74-104) mg/dL Calcium 9.0 (8.5-10.3) mg/dL Total Bilirubin 0.4 (0.2-1.0) mg/dL AST 10 (10-42) IU/L ALT 19 (10-60) IU/L Alkaline Phosphatase 90 (42-121) IU/L Total Protein 6.3 L (6.4-8.9) g/dL Albumin 3.6 (3.2-5.5) g/dL Globulin 2.7 (2.1-4.2) g/dL Albumin/Globulin Ratio 1.3 (1.0-2.2) Urine Color YELLOW Urine Clarity CLEAR (CLEAR) Urine pH 5.5 (5.0-7.5) PH Ur Specific [place] 1.025 (1.002-1.030) Urine Protein NEGATIVE (NEGATIVE) mg/dL Urine Glucose (UA) NEGATIVE (NEGATIVE) mg/dL Urine Ketones NEGATIVE (NEGATIVE) mg/dL Urine Occult Blood NEGATIVE (NEGATIVE) Urine Nitrite NEGATIVE (NEGATIVE) Urine Bilirubin NEGATIVE (NEGATIVE) Urine Urobilinogen 0.2 (NORMAL) (NORMAL) E.U./dL Ur Leukocyte Esterase NEGATIVE (NEGATIVE) Urine RBC 0-5 (0-5) /HPF Urine WBC 0-3 (0-5) /HPF Ur Squamous Epith Cells FEW Squamous (<= Few) Urine Bacteria Few (None Seen) /HPF Urine Culture Comments NOT INDICATED Nasal Screen MRSA (PCR) POSITIVE A* (NEGATIVE) Urine Opiates Screen POSITIVE H (NEGATIVE) Ur Buprenorphine Scrn NEGATIVE (NEGATIVE) Ur Oxycodone Screen NEGATIVE (NEGATIVE) Urine Methadone Screen NEGATIVE (NEGATIVE) Urine Fentanyl Screen Negative (NEGATIVE) Ur Barbiturates Screen NEGATIVE (NEGATIVE) Ur Tricyclics Screen POSITIVE H (NEGATIVE) Ur Phencyclidine Scrn NEGATIVE (NEGATIVE) Ur Amphetamine Screen NEGATIVE (NEGATIVE) U Methamphetamines Scrn NEGATIVE (NEGATIVE) U Benzodiazepines Scrn POSITIVE H (NEGATIVE) Urine Cocaine Screen NEGATIVE (NEGATIVE) U Cannabinoids Screen POSITIVE H (NEGATIVE) Ur Drug Screen Comment CUTOFF CONC BELOW: Assessment/Plan Problem List (1) Encephalopathy: Impression: She has a persistent encephalopathy, is confused. She has a tremor. This is most consistent with a metabolic encephalopathy, possibly toxic from polypharmacy versus withdrawal. I actually lean heavily on the idea that this is withdrawal. She has multiple substances that she typically uses including 90 mg of p.o. morphine daily short acting. She is on alprazolam effectively scheduled twice daily. She is on twice daily atypical antipsychotic. And mirtazapine nightly. Her daughter shares that she is paranoid somewhat at baseline. This could be exacerbated by the steroids she is on. All of the above can be leading to enhanced delirium in the setting of her recent infection. UA ordered in the ED was not suggestive of infection. - Rescheduled her alprazolam so it is scheduled twice daily - Increased her nicotine patch to match her pack a day smoking - Encouraged them to consider fentanyl patch rather than IR morphine o They wish to talk with their palliative care doctor prior to making this change o I have notified Aziza Villalpando o Equivalent fentanyl patch dose 37 mcg (includes 82% cross tolerance) - Follow-up blood cultures, NGTD - Diarrhea as below - Hypercapnia as below - Discontinue fluids, limit lines and drains - Delirium precautions Qualifiers: Encephalopathy type: metabolic Qualified Code(s): G93.41 - Metabolic encephalopathy (2) Fatigue: Impression: Seemingly improved. She has had good energy throughout the day. She was able to ambulate and wants to walk with her daughter. Suspect this was related to her encephalopathy, polypharmacy, and/or her recent illness. - Discontinue IV fluids (3) Pneumonia: Impression: No ongoing concern for pneumonia. Her blood work looks reasonably okay. She has not developed a white count. Recall that on arrival, she had been treated 1 week prior for a pneumonia. CXR was read as focal pneumonia on the right. I have personally reviewed her chest x-ray, and I do not appreciate a clear focal consolidation in the right lower lung is reported. It looks effectively unchanged from exam in the ED 8 days prior to admission. Patient's cough is resolving from her initial illness on 02/14. Patient got ceftriaxone in the ED 1 g. - Monitor off antibiotics at this time - CBC and BMP a.m. Qualifiers: Laterality: right Lung location: lower lobe of lung Pneumonia type: d ue to unspecified organism Qualified Code(s): J18.9 - Pneumonia, unspecified organism (4) Respiratory acidosis: (5) Chronic respiratory failure with hypoxia: (6) COPD (chronic obstructive pulmonary disease): Impression: Patient has a very notable compensated respiratory acidosis. Her VBG is indicative of slight acidosis. Her bicarb on her chemistries is elevated. Longstanding history of COPD. She is on her baseline level of oxygen she is at home 3 L. Overall her current presentation is not consistent with COPD exacerbation. No increased sputum production, no increased dyspnea. Home meds include Trelegy Ellipta inhaler, DuoNebs, as needed albuterol, and prednisone. Prednisone was recently increased from 5 mg to 10 mg. - Continue formulary equivalents of inhalers - Will reduce prednisone down to 5 mg for 2 days and then discontinue in the setting of encephalopathy. - As needed DuoNebs q4H - O2 sat goal 88 to 92%, Avoid over oxygenation to help with hypercapnic respiratory failure - Ultimately she fails to improve on these measures, she may need BiPAP, though working to avoid Qualifiers: COPD type: unspecified COPD Qualified Code(s): J44.9 - Chronic obstructive pulmonary disease, unspecified (7) Diarrhea: Impression: She is not demonstrating more diarrhea here. Stool samples been unable to be obtained. She is eating and drinking. Patient has had multiple episodes of diarrhea since she started on antibiotics on 02/14. She states that every time she pees she has episodes of diarrhea. Suspect this is mostly related to her antibiotic exposure. Less likely infectious in the setting of her normal white count. She is at risk for C. difficile given recent antibiotics exposure. She has been unable to have a bowel movement yet this hospitalization. - GI stool PCR ordered by ED, stool culture ordered by ED, C. difficile PCR ordered - Monitor for recurrent diarrhea and collect samples if indicated - Discontinue fluids - Consider loperamide if recurrent and infectious causes ruled out - Consider starting probiotic, but not at this time given no diarrhea. (8) CAD (coronary artery disease): Impression: Patient has no anginal symptoms at this time. Denies any chest pain or dyspnea. Her home regimen includes DAPT. No nitrates - Continue ASA 81 mg, clopidogrel 75 mg Qualifiers: Associated angina: with unspecified form of angina Coronary Disease- Associated Artery/Lesion type: bypass graft, nonautologous biological Qualified Code(s): I25.739 - Atherosclerosis of nonautologous biological coronary artery bypass graft(s) with unspecified angina pectoris (9) CHF (congestive heart failure): Impression: Unclear if patient has congestive heart failure chest peripheral artery disease resulting in lower extremity edema. I do not see an echo on file. She has a diagnosis of HFrEF and her chart, but is not on HFrEF meds. She appears to be clinically euvolemic on exam. She has trace edema in her lower extremities if anything. - Continue MANAGER INTERN Lasix 20 mg p.o. daily - Defer inpatient echo as it would not change acute management. Qualifiers: Heart failure type: unspecified Heart failure chronicity: chronic Q ualified Code(s): I50.9 - Heart failure, unspecified (10) Generalized anxiety disorder: Impression: Mood is euthymic. Patient on multiple medicines for this prior to arrival including mirtazapine 45 mg, BuSpar 10 mg twice daily, quetiapine 200 mg a.m., 40 mg nightly. - Continue meds as above (11) Peripheral neuropathy: Impression: Remains stable on home gabapentin 300 mg 3 times daily. - Continue MANAGER INTERN gabapentin - Monitor renal function. Qualifiers: Peripheral neuropathy type: polyneuropathy, unspecified Qualified Code(s): G62.9 - Polyneuropathy, unspecified (12) Uncomplicated opioid dependence: Impression: Patient was previously on hospice at 1 time. Unclear if she was started on opiates at that time. She takes 15 mg morphine oral concentrate every 4 hours including waking up at night at baseline. She also takes gabapentin as above. - Continue scheduled twice daily sennosides - Patient does not take scheduled MiraLAX at home, we will avoid starting in the setting of her recent diarrhea. - Will transition to morphine pills during this hospitalization due to liquid morphine shortage - Consideration for fentanyl patch as above. I spent a total of 42 minutes in the care of this patient today. This time was spent reviewing labs, vital signs, imaging, interviewing and examining the patient, and discussing plan of care with them and their other care providers. Patient is doing with likely side effect of chronic condition treatment. Data review as above. Prescription management as above. [id number]
[2025-02-23] MEDS: NICOTINE 21 MG PATCH TOP SCH (17:21)
[2025-02-24 05:21] LABS: HCT - HEMATOCRIT 43.0 % (37.0-47.0); HGB - HEMOGLOBIN 13.1 g/dL (12.0-16.0); MEAN PLATELET VOLUME 9.5 fL (7.9-10.8); NRBC ABSOLUTE COUNT (AUTO) 0.00 x10^3/uL; NUCLEATED RED BLOOD CELLS AUTO 0.0 /100WBC; PLT - PLATELET COUNT 221 10^3/uL (130-450); RED CELL DISTRIBUTION WIDTH 13.1 % (12.0-15.0)
[2025-02-24 05:47] LABS: BUN - BLOOD UREA NITROGEN 13.0 mg/dL (6-20); CARBON DIOXIDE - CO2 42.0 mmol/L (21-32); CREATININE 0.6 mg/dL (0.6-1.3); GFR - MDRD 101.0 (>89)
[2025-02-24] MEDS: ACETAMINOPHEN 325 MG TABLET PO PRN (06:53)
--- NOTE | 2025-02-24 10:28 | Discharge Summary ---
Discharge Summary Admit Date: 02/22/25 Discharge Date: 02/24/25 Discharging Provider: Dakota Asher Primary Care Provider: Vivian Hoang Code Status: Do Not Attempt Resuscitation DIAGNOSES Discharge Diagnoses with Status of Each Condition: Acute metabolic encephalopathy, resolved Pneumonia, resolved Respiratory acidosis, chronic, compensated Uncomplicated opiate dependence, chronic, stable Chronic hypoxemic respiratory failure, chronic, stable COPD, chronic, stable Diarrhea, resolved CAD, chronic, stable Lower extremity edema, chronic, stable BESSY, chronic, stable Peripheral neuropathy, chronic, stable HPI History of Present Illness: Patient is a 64-year-old female with past medical history notable for CAD, COPD on 2 to 3 L O2 via NC chronically, prior polysubstance abuse, uncomplicated opiate dependence, TUD, generalized anxiety disorder who was recently seen in the ED for pneumonia and treated outpatient. She follows with palliative care and primary care in the community. She is a resident of [facility]. Patient and her daughter Merline are present in the room. History is obtained from both of them. The patient is a reasonable historian. She was seen in the ED on 02/14 for unexplained disrobing and otherwise altered mentation at her assisted living facility. She was satting at 84% when EMS arrived. Unclear whether she was wearing her chronic oxygen. At that time, she was found to have possible pneumonitis versus pneumonia on her chest x-ray. She was prescribed Augmentin and Z-Eduardo. Steroids were discussed as well, but I do not send them actually prescribed. Possibly because she is on chronic prednisone 5 mg. She left the hospital from the ED and reportedly never started feeling better. Continue to get worse over the next week. She was started to have some diarrhea from the antibiotics. She is finished both antibiotics. She did not eat Chirag dinner, and shares that she was really looking forward to it. In the interim, palliative care has seen her for a regularly scheduled visit. They relay as well that she was not feeling better. She had a significant cough which is improved with guaifenesin. She had multiple other somatic complaints. Her daughter went to see her at [facility] today, and found that she was more confused, more fatigued than normal. She did not look herself. She is not having any robin fevers but having some chills. She has been weaker and having to use up to 4 L of oxygen at times. With all of this, the daughter brought her back to the ED. She has no leukocytosis (resolved from 27,000 8 days ago). Her VBG shows compensated respiratory acidosis consistent with her diagnosis of COPD. Her bicarb on her chemistry is elevated suggestive of contraction in the setting of her diarrhea. Her potassium is normal. Her renal function is normal. Procalcitonin is undetected. She did test positive on the and today for rhinovirus. Her chest x-ray is read as suggestive for right infiltrate, though not fully demonstrated on my review. The patient is DNR/selective intervention. Her daughter is her POA and is very supportive. The patient does not want to be in the hospital for longer she has to be. She follows with palliative care in the community and they have an appointment scheduled for February. CONSULTS | PROCEDURES Consultations: None Procedures: CXR 02/22/2025 HOSPITAL COURSE Hospital Course: Patient is a 64-year-old female with a recent diagnosis of pneumonia, she has completed antibiotics. She was also treated for concomitant COPD exacerbation. She is on steroids on admission. Her daughter reported that she just felt more encephalopathic, more fatigued. This worsened during her stay at our hospital over the first 24 hours. This was largely contributed to by various polysubstance withdrawal. Once her home meds were stabilized including her nicotine dependence, she stabilized quickly. It was initially considered that she may have had failure of outpatient management of her previous pneumonia. Given her resolution of her white blood cell count, improvement in her cough, and stable respiratory status, she was not continued on antibiotics after she received a dose in the ED. She remained clinically stable at this regard, and I do not believe that infection played a significant role in her current presentation. She did acutely decompensate while she was here with regard to her mentation. She got more tremulous, forgetful, paranoid, and agitated. The etiology of this is likely polysubstance withdrawal. She was underdosed on her nicotine patch when she first arrived, she smokes almost a pack a day and stabilized on a 21 g nicotine patch. Furthermore, she missed a dose of alprazolam which she has written as needed, but states she takes twice daily. Finally, she was transitioned from liquid morphine to an equivalent dose of tablets. She became distressed so this over the first night of her hospitalization and skipped a dose of this medication. With these 3 changes, she abruptly decompensated with her mentation. She is quite sensitive to these medicines and her body is clearly accustomed to them. Regarding her initial presentation, I do wonder whether her increasing use of guaifenesin which she has been taking 6 times daily and her prednisone which she has not historically been on but was recently started at 5 mg and increased to 10 mg with hopes of reducing COPD exacerbations may be contributing. She was seen and evaluated on day of discharge, she is doing well. She states she feels like herself. Her daughter endorses that the patient looks "normal". I have recommended we reduce her dose of prednisone back down to 5 mg, family is agreeable. It is not unreasonable for them to discontinue this altogether, but I encouraged him to discuss with the prescribing doctor. This was the only medication change that we made other than discontinuing guaifenesin as her cough is resolved. I do suggest that they consider consolidating her morphine into a more consistent basal/bolus formulation. Most simply if she has been tolerating full agonist therapy would be to switch her to something like a fentanyl patch. They did not want to do this without support of their palliative care doctor. Additionally if abuse is of concern, switching to a partial agonist such as buprenorphine which can be supplied in the [place] patch, Suboxone, Sublocade may be a consideration, though would not be my first recommendation. If switching to a fentanyl patch is considered, roughly 37 mg (25+12) patch would cover most of her current morphine needs. She could supplement with as needed on top of that. Alternatively she could use a 25 with 2-3 supplemental doses during the day. This may help from her having to get up in the middle of the night to take a morphine tablet. She has previously trialed extended release morphine tablets and did not like them. She is unclear why. Encouraged her to follow-up with her primary care doctor in the next month. She also has an appointment with palliative already scheduled for February. Attempts were made to coordinate with palliative to see her while she was in house, however she discharged before she could be seen by them here. The patient and her daughter were quite grateful for the effort. ALLERGIES Allergies Allergy/AdvReac Type Severity Reaction Status Date / Time No Known Drug Allergies Allergy Verified 02/22/25 13:03 MEDICATIONS Ambulatory Orders Medication Instructions Recorded Confirmed albuterol sulfate 90 mcg/actuation 2 puff inhalation T ID PRN 07/10/24 02/22/25 aerosol inhaler shortness of breath or wheez ing furosemide 20 mg tablet 20 mg PO DAILY 07/10/2401/27 thiamine HCl (vitamin B1) 100 mg 100 mg PO DAILY 07/1002/22/25 capsule quetiapine 200 mg tablet 200 mg PO DAILY PRN agitatio n, 08/26/24 02/23/25 paranoia, hallucinations aspirin 81 mg tablet,delayed 81 mg PO DAILY #30 tabs 0 08/28/24 02/22/25 release (Brenda Low Dose Aspirin) pantoprazole 20 mg tablet,delayed See Rx Instructions .Route 10/21/24 02/22/25 release .COMPLEX #30 tabs cyanocobalamin (vitamin B-12) 1,000 mcg PO DAILY #30 t abs 12/09/24 02/22/25 1,000 mcg tablet magnesium gluconate 12.5 mg 12.5 mg PO BID #90 tabs 02/22/25 magnesium (250 mg) tablet polyethylene glycol 3350 17 17 g PO QDAY PRN constipat ion 12/09/24 02/22/25 gram/dose oral powder fluticasone fur. 100 mcg-umeclid 1 inh inhalation Q24H #60 ea 12/22/24 02/22/25 62.5 mcg-vilant 25 mcg inhalat.powder (Trelegy Ellipta) morphine concentrate 100 mg/5 mL 15 mg (0.75 mL) PO Q4 H #240 mL 01/06/25 02/22/25 (20 mg/mL) oral solution gabapentin 300 mg capsule See Rx Instructions .Route 1 03/11/24 02/22/25 .COMPLEX #90 caps alprazolam 0.5 mg tablet 0.5 mg PO BID PRN anxiety #6 0 tabs 02/05/25 02/22/25 clopidogrel 75 mg tablet 75 mg PO DAILY #30 tabs 01/2602/22/25 sennosides 8.6 mg capsule (senna) 8.6 mg PO DAILY PRN constipation 02/05/25 02/23/25 buspirone 10 mg tablet 10 mg PO BID #90 tabs 02/22/25 quetiapine 400 mg tablet 400 mg PO QPM #90 tabs 02/1702/22/25 buspirone 15 mg tablet 15 mg PO DAILY 02/23/2501/27 cholecalciferol (vitamin D3) 50 50 mcg PO DAILY 02/23/25 mcg (2,000 unit) capsule mirtazapine 45 mg tablet 45 mg PO HS 02/23/25 5 quetiapine 200 mg tablet 200 mg PO DAILY 02/23/25 prednisone 5 mg tablet 5 mg PO DAILY #0 tabs PHYSICAL EXAM AT DISCHARGE Vital Signs: Vital Signs x48h Temp Pulse Pulse Resp BP Pulse Ox O2 Flow Rate 02/24/25 09:45 107 H 20 93 2 02/24/25 07:30 2 02/24/25 07:27 84 18 2 02/24/25 05:59 36.4 C L 77 16 127/80 96 2 02/24/25 04:49 2 LABS 02/24/25 05:01 02/24/25 05:01 DIAGNOSTIC IMAGING Diagnostic Imaging Results: Final report reviewed and Read independently Diagnostic Imaging Results Comments: CXR 02/22: Read as "suspected right lower lobe infection, similar to 02/14/2025." My evaluation, there does not appear to be a clear consolidation in that region. The increased density in her lower lung yang seems to be symmetric bilaterally. FOLLOW UP Follow Up: Follow-up scheduled with palliative in February Follow-up with PCP in the next 1 month TIME SPENT Time Spent in Discharge (Minutes): 41 Discharge Plan Discharge Patient Disposition: Home, Self Care Condition: Stable Medically Cleared Date:: 02/24/25 Prescriptions: New prednisone 5 mg Tablet 5 mg PO DAILY Qty: 0 0RF Continued pantoprazole 20 mg tablet,delayed release (DR/EC) See Rx Instructions .ROUTE .COMPLEX Qty: 30 11RF Dose Instruction: 1 TAB BY MOUTH EVERY MORNING 30 MINS PRIOR TO FIRST MEAL Rx Instructions: 1 TAB BY MOUTH EVERY MORNING 30 MINS PRIOR TO FIRST MEAL cyanocobalamin (vitamin B-12) 1,000 mcg tablet 1,000 mcg PO DAILY Qty: 30 11RF Trelegy Ellipta 100-62.5-25 mcg blister with device 1 inh inhalation Q24H Qty: 60 3RF gabapentin 300 mg capsule See Rx Instructions .ROUTE .COMPLEX Qty: 90 11RF Dose Instruction: 1 CAP BY MOUTH 3 TIMES DAILY Rx Instructions: 1 CAP BY MOUTH 3 TIMES DAILY quetiapine 400 mg tablet 400 mg PO QPM Qty: 90 0RF furosemide 20 mg tablet 20 mg PO DAILY albuterol sulfate 90 mcg/actuation HFA aerosol inhaler 2 puff inhalation TID PRN (Reason: shortness of breath or wheezing) Rx Instructions: Resident may keep and self-administer thiamine HCl (vitamin B1) 100 mg capsule 100 mg PO DAILY mirtazapine 45 mg tablet 45 mg PO HS buspirone 15 mg tablet 15 mg PO DAILY quetiapine 200 mg tablet 200 mg PO DAILY Rx Instructions: Give at noon daily cholecalciferol (vitamin D3) 50 mcg (2,000 unit) capsule 50 mcg PO DAILY alprazolam 0.5 mg tablet 0.5 mg PO BID PRN (Reason: anxiety) Qty: 60 5RF Rx Instructions: May take in AM and PM; not together. senna 8.6 mg capsule 8.6 mg PO DAILY PRN (Reason: constipation) Rx Instructions: Hold for loose stool clopidogrel 75 mg tablet 75 mg PO DAILY Qty: 30 0RF quetiapine 200 mg tablet 200 mg PO DAILY PRN (Reason: agitation, paranoia, hallucinations) aspirin [Brenda Low Dose Aspirin] 81 mg tablet,delayed release (DR/EC) 81 mg PO DAILY Qty: 30 11RF magnesium gluconate 12.5 mg magne- sium (250 mg) tablet 12.5 mg PO BID Qty: 90 3RF polyethylene glycol 3350 17 gram/dose powder 17 g PO QDAY PRN (Reason: constipation) morphine concentrate 100 mg/5 mL (20 mg/mL) solution 15 mg PO Q4H Qty: 240 0RF buspirone 10 mg tablet 10 mg PO BID Qty: 90 3RF Discontinued prednisone 5 mg tablet 10 mg PO DAILY guaifenesin 100 mg/5 mL liquid 200 mg PO Q4H 7 Days Qty: 420 4RF Rx Instructions: while awake with full glass of water x 7 days. Then change to q4hrs PRN Activity Restrictions: No Restrictions Diet: Regular Health Concerns: You were hospitalized for confusion in the setting of metabolic encephalopathy. This is a condition where your brain function is affected by medications or other factors in your body. You were hospitalized because multiple medications (polypharmacy) caused confusion and changes in your thinking. With proper medication management and monitoring, this condition can improve. You have improved without receiving additional antibiotic. Your steroids and guaifenesin were reduced. Your Medications Have Changed Your doctors have reviewed all your medications and made important changes to help prevent this from happening again. Some medications that may have contributed to your confusion have been stopped or reduced. It is very important that you only take the medications on your updated medication list. Do not restart any old medications without talking to your doctor first. Medications that commonly cause confusion include: - Sleep medications (benzodiazepines like lorazepam, diazepam) - Pain medications (opioids like oxycodone, hydrocodone) - Medications for overactive bladder or allergies (anticholinergics) - Some antidepressants - Certain antibiotics - Steroids Warning Signs to Watch For Call your doctor or return to the hospital if you notice any of these symptoms: - Confusion or disorientation (not knowing where you are, what day it is, or who people are) - Personality changes (irritability, unusual behavior, agitation) - Excessive sleepiness during the day or trouble staying awake - Difficulty concentrating or paying attention - Sleep problems (sleeping during the day, awake at night) - Trembling or shaking hands (asterixis) - Slurred speech or difficulty finding words If these symptoms occur with fever, severe headache, or inability to wake up, go to the emergency room immediately. If you are noticing any of the signs appearing more subtly, it is important to have a conversation with your doctors about early signs of cognitive decline. How to Prevent This from Happening Again Medication Safety: - Keep an updated list of all your medications with you at all times - Use one pharmacy for all your prescriptions so they can check for drug interactions - Never take medications prescribed for someone else - Do not take [id number] medications, supplements, or herbal products without asking your doctor first - Tell all your doctors about every medication you take, including vitamins and supplements General Health: - Drink plenty of water to stay hydrated (unless your doctor has told you to limit fluids) - Eat regular, balanced meals - Avoid constipation by eating fiber-rich foods and staying active - Treat infections promptly (urinary tract infections, pneumonia, and other infections can trigger confusion) - Limit or avoid alcohol completely Fall Prevention: - Some medications can make you dizzy or unsteady. Use handrails, remove tripping hazards, and use assistive devices if recommended - Get up slowly from sitting or lying down - Make sure your home is well-lit, especially at night Important Reminders - Your thinking and memory may take time to fully recover. Be patient with yourself. - Family members or caregivers should watch for warning signs and help you manage your medications. - Keep all follow-up appointments with your doctors. - If you have questions about your medications, call your doctor or pharmacistdo not just stop taking them. Questions to Ask Your Doctor - What should I do if I develop new symptoms? - Do I need help managing my medications at home? Spent a pleasure taking care of you. I hope you continue to do well. If you want help quitting smoking, I recommend you discuss with your provider about starting on a nicotine patch. You have done reasonably well in a 21 mg nicotine patch while you are here. Print Language: Tongan Patient Instructions: Prednisone Stand Alone Forms: SBIRT Follow-up Care: Aziza Villalpando ARNP [Provider Admit Priv/Credential, Palliative Care] Vivian Hoang MD [Provider Admit Priv/Credential, Family Practice] Vitals documented within 30 minutes of discharge?: Yes
[2025-02-24 12:42] VITALS: BP 99/68; TEMP 97.9; O2SAT 94
== END 2025-02-24 11:00 | disposition home or self-care (01) | DRG 70 ==
LOC: ED 12:54 → MS3 12:54
PROVIDERS: ADMIT Student in an Organized Health Care Education/Training Program; ATTEND Student in an Organized Health Care Education/Training Program
DX: I50.22 Chronic systolic (congestive) heart failure; G62.9 Polyneuropathy, unspecified; I25.739 Atherosclerosis of nonautologous biological coronary artery bypass graft(s) with unspecified angina pectoris; F17.210 Nicotine dependence, cigarettes, uncomplicated; Z87.01 Personal history of pneumonia (recurrent); J44.0 Chronic obstructive pulmonary disease with (acute) lower respiratory infection; R19.7 Diarrhea, unspecified; B34.8 Other viral infections of unspecified site; Z66 Do not resuscitate; J18.9 Pneumonia, unspecified organism; G93.41 Metabolic encephalopathy; F19.239 Other psychoactive substance dependence with withdrawal, unspecified; F41.1 Generalized anxiety disorder; J96.12 Chronic respiratory failure with hypercapnia; J96.11 Chronic respiratory failure with hypoxia; R53.83 Other fatigue; F11.20 Opioid dependence, uncomplicated; Z99.81 Dependence on supplemental oxygen